=== PATIENT | male | born 1940 | race Caucasian/White ===

== ENCOUNTER 2022-08-17 22:09 | Inpatient (IN) | payer MEDICARE, SELFPAY ==
[2022-08-17] VITALS (9 sets, daily range): BP systolic 126–168; BP diastolic 79–98; PULSE 96–108; RESP 22; TEMP 35.8–36.1; O2SAT 92–99; BMI 238.0
--- NOTE | 2022-08-17 | IR_ITS ---
APPROVED REPORT Patient Location: Emergent Relief Manager: MURPHY Thomas RT (R) PROCEDURES Left heart catheterization Left ventriculogram Selective coronary angiogram Selective engage the left internal mammary artery Selective engagement saphenous vein graft to the left coronary artery Selective engagement of the saphenous vein graft to the right coronary artery INDICATION Acute anterior ST elevation myocardial infarction, Coronary artery disease SCAI INDICATION Clinical history: Gentleman with known ischemic cardiomyopathy and told he has a weak heart was at dinner and suddenly experienced sudden cardiac . Please officers and bystanders apparently provided immediate and effective CPR. Patient was quickly shocked at the scene with apparent voodoo of rhythm. Upon arrival to the emergency department emergency room physician reports patient was in torsades and underwent recurrent cardioversion with sinus activity. EKG demonstrated anterior ST elevation with reciprocal change therefore patient was heparinized and emergently transferred to our hospital for anticipated PCI Informed consent was obtained prior to the procedure. COMPLICATIONS None Estimated Blood Loss: Less than 10 ml TECHNIQUE One percent lidocaine used to anesthetize the right groin. The right femoral artery was accessed via the Seldinger technique and a 6 Belarusian sheath was placed in the right femoral artery. A 6 Belarusian JL 4 and JR4 catheter were used to perform left heart catheterization left ventriculogram selective coronary angiography as well as selective engagement of the left internal mammary artery and the 2 vein grafts. At the end of the procedure the apparatus was removed the groin is reprepped closure change sheath was removed and hemostasis was achieved using Perclose device patient was transferred to the postop holding area hemodynamically stable while on the ventilator. 1 cardioversion was required during the cardiac catheterization for ventricular flutter and 1 after the procedure for ventricular fibrillation. ANGIOGRAPHIC RESULTS The left main artery Normal The left anterior descending artery Gives rise to a very large high first diagonal artery which is widely patent The circumflex artery Is probably a dominant vessel and has proximal 10% stenosis. The second obtuse marginal artery is moderate to large and has proximal 40 to 50% stenosis while the second obtuse marginal artery has tandem 70 to 80% proximal stenoses in the mid vessel 40% stenosis The right coronary artery Probably nondominant but possibly codominant with proximal and mid vessel 20 to 30% stenoses. The posterior descending artery is proximally subtotally occluded with evidence of competitive flow from the vein graft The AKHTAR ventriculogram reveals Severe left ventricular dilatation with global hypokinesis estimate ejection fraction 15% The left ventricular end-diastolic pressure Severely elevated at 35 to 40 mmHg ROBBINS to LAD widely patent Saphenous vein graft to posterior descending artery patent Saphenous vein graft to circumflex artery ostially occluded IMPRESSION Sudden cardiac mimicking anterior ST elevation myocardial infarction with widely patent coronary arteries as described above Sudden cardiac almost certainly stemming from ischemic systolic congestive heart failure Severely reduced ejection fraction Severely elevated LVEDP PLAN 1. Amiodarone drip per protocol 2. Supportive care 3. Ventilator management 4. Lasix 40 mg IV x1 to help diurese 5. Monitor blood gases and make adjustments with ventilator as needed 6. Try to wean ventilator over the next couple of days and see if patient has b
[2022-08-17 22:38] LABS: CATHL Activated Clotting Time > 400 SEC (74-125)
[2022-08-17 22:50] LABS: ABG HCO3 19.7 mmhg (22.0-26.0); ABG Oxygen Saturation 94 % (90-100); ABG PCO2 49.2 mmhg (35.0-45.0); ABG PH 7.22 mmol/L (7.35-7.45); ABG PO2 84.1 mmhg (80-100); ABG TCO2 21.2 mmhg (23-27)
[2022-08-17 22:53] LABS: Allen's Test Non Applicable; Oxygen 100 %; PEEP 5; Source Right Radial; Tidal Volume 475; Vent Rate 22
--- NOTE | 2022-08-17 23:05 | EXP.HP ---
History of Present Illness *Admission Date: 08/18/22 *Reason for visit:: Sudden onset of Cardiac Arrest *History of present illness: Mr. Esposito is a transfer from [facility] due to acute onset of Cardiopulmonary Arrest that occurred while eating out today prior to his presentation to [facility]. Per Family at bedside the patient was out eating at a restaurant when he appeared to have a possible choking event and went down. He was unresponsive per family report and a bystander in the field performed CPR and 911 was called, there was also a fire prevention officer per family that assisted with CPR. He was intubated and defibrillated when EMS arrived. He was taken into the ER at [facility]. Records from the transferring facility were reviewed, while at the facility he was found in V-fibrillation and received epinephrine and Amiodarone and defibrillated with 200 Joules, he then went into Torsades and received magnesium. He was found to have an elevated Troponin at 65.8 and EKG showed Atrial Fibrillation with a rate of 71 with significant elevation in the lateral leads. He was sent to [facility] for Cardiology evaluation. At [facility] a STEMI alert was called, he underwent evaluation of coronary anatomy and no significant stenosis found. Due to a mixed Acidosis he received Sodium Bicarbonate in the receiver/laborer. He arrived to the intensive care intubated, Sedations orders were given. The family were present at bedside on transfer, the plan of care overnight was discussed by the Senior Marketing Specialist. The family verbalized understanding and agreement with the plan of care. [facility] Disclaimer: The information contained in this section may have been updated after the patient was seen, as this information can be updated by other users. Medical History (Updated 08/18/22 @ 00:59 by Scott Flynn DNP) Congestive heart failure Falls Hyperlipidemia Hypertension Surgical History (Updated 08/18/22 @ 00:25 by Scott Flynn DNP) History of penile implant History of percutaneous coronary intervention Hx of CABG Social History Smoking Status: Never smoker alcohol intake: never current occupational status: unemployed Travel in the last 8 weeks: None Review of Systems Review of Systems Review of systems:: unable to obtain Meds Home Medications and Allergies New Prescriptions to Start Prescriptions: Allergies Allergy/AdvReac Type Severity Reaction Status Date / Time No Known Allergies Allergy Verified 08/17/22 21:29 Exam Data for Last 24 hours Vital signs and Labs for Last 24 Hours: Laboratory Results - last 24 hr 08/17/22 22:42: Activated Clotting Time > 400 H* 08/17/22 22:46: Specimen Source Right radial, O2 % 100, ABG pH 7.22 L*, ABG pCO2 49.2 H, ABG pO2 84.1, ABG HCO3 19.7 L, ABG Total CO2 21.2 L, ABG O2 Saturation 94, ABG Base Excess -8.0 L, Tyron Test Non applicable, Vent Rate 22, Tidal Volume 475, PEEP 5 I & O for Last 24 hours: Intake & Output 08/14/22 08/15/22 08/16/22 08/17/22 23:59 23:59 23:59 23:59 Weight 120 kg Constitutional Constitutional: no acute distress *Routine HEENT Exam Head: Present normocephalic Eye: Present normal accommodation ENT: Present mucous membranes dry *Routine Neck Exam Neck: Present trachea midline *Routine Respiratory Exam Respiratory: Present patient mechanically ventilated and CTA bilaterally *Routine Cardiovascular Exam Cardiovascular: Present murmur and rubs *Routine Abdominal Exam Abdominal: Present soft and normoactive bowel sounds *Routine Rectal Exam Rectal:: deferred *Routine Genitalia Exam Genitalia:: deferred *Routine Skin Exam Skin: Present intact *Routine Neurological Exam Comments: Sedated on the ventilator Assessment and Plan *Assessment and plan (1) Cardiopulmonary arrest: Status: Acute Category: Medica
--- NOTE | 2022-08-17 23:45 | XR_ITS ---
PROCEDURE INFORMATION: Exam: XR Chest Exam date and time: 08/18/2022 12:09 AM Age: 81 years old Clinical indication: Device placement; Ett placement (vent status); Additional info: Ett and ng placement TECHNIQUE: Imaging protocol: Radiologic exam of the chest. Views: 1 view. COMPARISON: No relevant prior studies available. FINDINGS: Tubes, catheters and devices: Endotracheal tube appears to be in place with the tip approximally 2.5 cm above the mac. Esophagogastric tube appears to be in place with the tip in the stomach. Lungs: Lung volumes are low with bilateral lower lobe consolidative atelectasis. Upper lungs appear largely clear. Lung apices are partially obscured by the patient's head. Pleural spaces: Questionable pleural fluid or thickening in the right costophrenic angle. Heart/Mediastinum: Unremarkable. No cardiomegaly. Bones/joints: Unremarkable. IMPRESSION: Limited study due to low lung volumes. Bilateral lower lobe consolidative atelectasis and questionable right pleural fluid versus thickening noted. Tubular supportive devices as described, poorly visualized.
[2022-08-17 23:48] LABS: Basophils # 0.1 K/mm3 (0-0.2); Basophils % 0.4 % (0.1-2.0); Eosinophils # 0.1 K/mm3 (0.0-0.4); Eosinophils % 0.3 % (0.1-12.0); Hematocrit 44.9 % (42.0-52.0); Hemoglobin 14.5 g/dL (14.1-18.0); Lymphocytes # 2.1 K/mm3 (0.7-4.5); Lymphocytes % 9.9 % (10-50); Mean Corpuscular HGB Conc 32.3 g/dL (31.8-35.4); Mean Corpuscular Hemoglobin 31.1 pg (27.0-31.2); Mean Corpuscular Volume 96.6 fl (80-94); Mean Platelet Volume 8.9 fl (7.4-10.4); Monocytes % 4.8 % (1.7-9.3); Neutrophils # 17.9 K/mm3 (1.8-7.8); Neutrophils % 84.6 % (37.0-80.0); Platelet Count 266 K/mm3 (142-424); Red Blood Count 4.64 M/mm3 (4.60-6.20); Red Cell Distribution Width 13.9 % (11.5-17.5)
[2022-08-17 23:49] LABS: MANUAL DIFFERENTIAL MANUAL DIFFERENTIAL (MANUAL DIFF); White Blood Count 21.2 K/mm3 (4.8-10.8)
[2022-08-17 23:53] LABS: Alanine Aminotransferase 99 U/L (12-78); Albumin/Globulin Ratio 1.3 (1.1-1.8); Alkaline Phosphatase 150 U/L (38-126); Anion Gap 14.1 mEq/L (5-15); Aspartate Amino Transferase 283 U/L (17-59); Bilirubin,Total 1.5 mg/dl (0.2-1.3); Blood Urea Nitrogen 16 mg/dl (9-20); Calcium 7.3 mg/dl (8.4-10.2); Carbon Dioxide 18 mmol/L (22.0-30.0); Chloride 107 mmol/L (98-107); Creatinine Clearance Estimated -17 mL/min (50-200); Estimated Glomerular Filt Rate 53 ml/min (>60); GFR (African American) 64 ML/MIN (>60); Glucose 386 mg/dl (74-100); Magnesium 2.2 mg/dl (1.6-2.3); Phosphorous 4.1 mg/dl (2.5-4.5); Potassium 4.1 mmoL/L (3.5-5.1); Sodium 135 mmol/L (136-145)
[2022-08-18] VITALS (36 sets, daily range): BP systolic 71–142; BP diastolic 33–82; PULSE 78–100; RESP 16–27; TEMP 36.1–36.9; O2SAT 91–99; BMI 25.7
--- NOTE | 2022-08-18 00:06 | XR_ITS ---
PROCEDURE INFORMATION: Exam: XR Abdomen Exam date and time: 08/18/2022 12:20 AM Age: 81 years old Clinical indication: Device placement; Non-vascular device; Other: Ng; Additional info: Ng placement TECHNIQUE: Imaging protocol: Radiologic exam of the abdomen. Views: Frontal supine view of the abdomen. 1 View. COMPARISON: CR XR CHEST PORTABLE 08/18/2022 12:09 AM FINDINGS: Tubes, catheters and devices: Esophagogastric tube appears to be in good position with the tip and side port in the stomach. Endotracheal tube is in good position with the tip 4 cm above the mac. Lungs: There is persistent right lower lobe consolidative atelectasis. Lungs otherwise appear largely clear. Gastrointestinal tract: Normal. No bowel dilation. Bones/joints: Unremarkable. IMPRESSION: Apparent appropriate position of NG tube and endotracheal tube. Persistent right lower lobe consolidative atelectasis.
[2022-08-18 00:11] LABS: Lymphocytes % 6 % (10-50); Monocytes % 2 % (2-9); Neutrophils % 83 % (42-76); Platelet Estimate Normal; RBC Morphology Normal; Total Cells Counted 100
[2022-08-18 00:25] LABS: ABG Base Excess -13.5 mmol/L (-2.4-2.3); ABG HCO3 16.3 mmhg (22.0-26.0); ABG Oxygen Saturation 96 % (90-100); ABG PO2 109.2 mmhg (80-100); ABG TCO2 18.1 mmhg (23-27)
[2022-08-18 00:26] LABS: Allen's Test Non Applicable; Oxygen 100% %; PEEP 5; Source Right Femoral; Tidal Volume 475; Vent Rate 22
[2022-08-18 00:27] LABS: ABG PCO2 55.5 mmhg (35.0-45.0); ABG PH 7.09 mmol/L (7.35-7.45)
[2022-08-18 01:05] LABS: NT Pro Brain Natriuretic Pep. 1750 pg/mL (0-450)
--- NOTE | 2022-08-18 01:10 | PC.NURSE ---
Pt arrived to floor from labor contractor via [employer] @ 1811.
--- NOTE | 2022-08-18 03:30 | CT_ITS ---
PROCEDURE INFORMATION: Exam: CT Head Without Contrast Exam date and time: 08/18/2022 6:24 AM Age: 81 years old Clinical indication: Injury or trauma; Fall; Unconscious; Additional info: Fell, hit head, cardiac arrest TECHNIQUE: Imaging protocol: Computed tomography of the head without contrast. Radiation optimization: All CT scans at this facility use at least one of these dose optimization techniques: automated exposure control; mA and/or kV adjustment per patient size (includes targeted exams where dose is matched to clinical indication); or iterative reconstruction. COMPARISON: No relevant prior studies available. FINDINGS: Brain: Prominent sulci. Patchy hypodensity of the cerebral white matter which are nonspecific but likely secondary to microangiopathic changes. Cerebral ventricles: The ventricles are prominent secondary to diffuse volume loss/atrophy. Paranasal sinuses: Visualized sinuses are unremarkable. No fluid levels. Mastoid air cells: Visualized mastoid air cells are well aerated. Bones/joints: Unremarkable. No acute fracture. Soft tissues: Right frontal soft tissue swelling. IMPRESSION: Right frontal soft tissue swelling and age related changes but no evidence of acute intracranial pathology.
--- NOTE | 2022-08-18 03:32 | PC.NURSE ---
Pt was becoming agitated and fighting the vent. Propofol and versed started at 0245 @ 10 mcg/kg/min. Fentanyl started @ 10 mcg/hr. At 0315 BP hypotensive. Levophed started @ 10 mcg/min.
[2022-08-18 03:40] LABS: Coronavirus 19, PCR Not Detected (NotDetected); Influenza A, PCR Not Detected (NotDetected); Influenza B, PCR Not Detected (NotDetected)
--- NOTE | 2022-08-18 03:43 | XR_ITS ---
PROCEDURE INFORMATION: Exam: XR Chest Exam date and time: 08/18/2022 3:57 AM Age: 81 years old Clinical indication: Device placement; Ett placement (vent status) TECHNIQUE: Imaging protocol: Radiologic exam of the chest. Views: 1 view. COMPARISON: CR XR CHEST PORTABLE 08/18/2022 12:09 AM FINDINGS: Tubes, catheters and devices: What is believed to be endotracheal tube is in place with the tip poorly visualized, possibly approximally 2 cm above the mac. Esophagogastric tube appears to be in good position. Lungs: There is persistent bilateral lower lobe consolidative atelectasis, stable on the left and improved on the right. Pleural spaces: Unremarkable. No pleural effusion. No pneumothorax. Heart/Mediastinum: Unremarkable. No cardiomegaly. Bones/joints: Unremarkable. IMPRESSION: 1. Limited study due to poor visualization of tubular supportive devices. NG tube appears to be in good position. ET tube is poorly visualized at present, with tip questionably approximally 2 cm above the mac. 2. Persistent bilateral lower lobe consolidative atelectasis, slightly improved on the right.
--- NOTE | 2022-08-18 03:44 | PC.NURSE ---
ETT was moved from 25.5 cm to 23 cm
--- NOTE | 2022-08-18 03:59 | PC.NURSE ---
patient not stable enough to transport for ct scan at this time per nurse will f/u later in the AM to see if patient is stable enough for exam.
--- NOTE | 2022-08-18 03:59 | PC.NURSE ---
Larissa TURNER notified of pt triggering sepsis.
[2022-08-18 04:41] LABS: POC Glucose,Bedside 169 (70-110)
[2022-08-18 06:01] LABS: ABG Base Excess -9.4 mmol/L (-2.4-2.3); ABG Oxygen Saturation 100 % (90-100); ABG PCO2 35.2 mmhg (35.0-45.0); ABG PO2 316.1 mmhg (80-100); ABG TCO2 18.1 mmhg (23-27)
[2022-08-18 06:02] LABS: Allen's Test Patient Unable; Oxygen 100% %; PEEP 5; Source Right Radial; Tidal Volume 475; Vent Rate 24
--- NOTE | 2022-08-18 07:24 | PC.NURSE ---
Pt is following some commands this AM. Sedation changed from propofol to versed. Pt remains sinus with frequent PVCs. Amiodarone is currently infusing @ 16.7 ml/hr. Levophed is currently infusing @ 8 mcg/min. Fentanyl is @ 12.5 mcg/hr. Pt is currently tolerating vent at this time. Vent settings are as follows: ETT @ 23 cm @ lip. AC, FiO2 100%, TV 475, PEEP 5, R 24. Has had copious amounts of secretions. Blood tinged. F/C draining to bedside with clear, yellow urine. Pt has had one loose stool this shift. Output has been good. NG to (R) nare. Mittens on pt's hands for safety. Family at bedside.
--- NOTE | 2022-08-18 08:21 | PC.NURSE ---
Fi02 was decreased to 40% following am ABG results.
--- NOTE | 2022-08-18 08:49 | CT_ITS ---
PROCEDURE INFORMATION: Exam: CT Chest Without Contrast; Diagnostic Exam date and time: 08/18/2022 11:05 AM Age: 81 years old Clinical indication: Other: Food obstruction; Prior surgery TECHNIQUE: Imaging protocol: Diagnostic computed tomography of the chest without contrast. Radiation optimization: All CT scans at this facility use at least one of these dose optimization techniques: automated exposure control; mA and/or kV adjustment per patient size (includes targeted exams where dose is matched to clinical indication); or iterative reconstruction. COMPARISON: CR XR CHEST PORTABLE 08/18/2022 3:57 AM FINDINGS: Tubes, catheters and devices: Termination of feeding tube in the gastric body. Termination of endotracheal tube 4 cm above the mac. Thyroid: High attenuation 2.3 cm cyst in the left thyroid lobe with a peripheral punctate calcification. Lungs: Interstitial prominence, chronic granulomatous disease, and dependent bibasilar airspace disease. Pleural spaces: Trace right anterior pneumothorax with small dependent bilateral pleural effusions. Heart: Coronary artery calcification. 18 mm anterior pericardial effusion. Lymph nodes: Calcified and noncalcified lymph nodes, including a 1.8 by 1.4 by 1.1 cm calcified precarinal lymph node. Vasculature: Calcification and ectasia of the thoracic aorta Mediastinum: Dilated air and fluid-filled esophagus. Hiatal hernia. Upper abdomen: High attenuation bile in the gallbladder. Hepatic and splenic granulomata. Dilated air and fluid-filled stomach. Incompletely visualized 8 mm nodular hyperdensity in the left renal pelvis. Bones/joints: Bilateral rib fractures of varying age including an acute angulated fracture of the right 2nd anterior rib. Median sternotomy. Osteopenia, degenerative change, Schmorl's nodes, and vertebral endplate irregularity. Soft tissues: Unremarkable. IMPRESSION: 1. Trace right anterior pneumothorax with small dependent bilateral pleural effusions. 2. Interstitial prominence, chronic granulomatous disease, and dependent bibasilar airspace disease. . 3. Bilateral rib fractures of varying age including an acute angulated fracture of the right 2nd anterior rib. 4. Additional findings as described above. The aforementioned findings initiated a critical results communication pathway. An addendum will be issued at the time of clincian notification. COMMENTS: 1. Consistent with the [employer]'s Incidental Findings Committee white paper (J Am Jade Radiol 2018): Any incidental renal lesion less than 1 cm or classified as too small to characterize, or any incidental cystic renal lesion characterized as simple-appearing, is likely benign. No follow-up imaging is recommended for these lesions per consensus recommendations based on imaging criteria. 2. Consistent with the [employer]'s Incidental Findings Committee white paper (J Am Jade Radiol 2015): In patients aged 35 years and older with an incidental thyroid nodule equal to or greater than 1.[address], MRI or extrathyroidal US, further evaluation with dedicated thyroid US is recommended for patients with normal life expectancy and without comorbidities. For smaller nodules without suspicious features, no further evaluation or follow up is recommended.
--- NOTE | 2022-08-18 08:57 | HMH.ITSTN ---
we brought pt down previously for a CT head at 6am this morning. pt is intubated but not sedated and has to remain intubated. Unable to come at this time.. He just vomited and is not sedated and fighting tube, nurse will call when team is ready to bring down. He will have to come with respiratory and nursing staff
[2022-08-18 08:58] LABS: Basophils # 0.1 K/mm3 (0-0.2); Basophils % 0.3 % (0.1-2.0); Eosinophils # 0.1 K/mm3 (0.0-0.4); Eosinophils % 0.2 % (0.1-12.0); Hematocrit 46.8 % (42.0-52.0); Lymphocytes % 3.6 % (10-50); Mean Corpuscular HGB Conc 32.1 g/dL (31.8-35.4); Mean Corpuscular Hemoglobin 30.7 pg (27.0-31.2); Mean Corpuscular Volume 95.7 fl (80-94); Mean Platelet Volume 9.2 fl (7.4-10.4); Monocytes # 2.2 K/mm3 (0.1-1.0); Monocytes % 8.1 % (1.7-9.3); Neutrophils # 23.3 K/mm3 (1.8-7.8); Neutrophils % 87.8 % (37.0-80.0); Platelet Count 166 K/mm3 (142-424); Red Blood Count 4.89 M/mm3 (4.60-6.20); Red Cell Distribution Width 14.2 % (11.5-17.5); White Blood Count 26.5 K/mm3 (4.8-10.8)
[2022-08-18 09:01] LABS: MANUAL DIFFERENTIAL MANUAL DIFFERENTIAL (MANUAL DIFF)
--- NOTE | 2022-08-18 09:58 | PC.NURSE ---
Pt put on waitlist at
--- NOTE | 2022-08-18 09:58 | PC.NURSE ---
Pt put on waitlist at [facility].
--- NOTE | 2022-08-18 10:04 | PC.NURSE ---
Pt on waitlist at [facility].
--- NOTE | 2022-08-18 10:21 | PC.NURSE ---
Addendum entered by Yajaira Gray, ALFA 08/18/22 10:51: Dr. Barkley spoke with marketing compliance manager and pt is on waitlist. Original Note: DR. Barkley waiting automation application engineer back from marketing compliance manager at
--- NOTE | 2022-08-18 10:24 | PC.NURSE ---
Pt put on waitlist at [facility]
[2022-08-18 10:30] LABS: Chloride 108 mmol/L (98-107); Potassium 4.1 mmoL/L (3.5-5.1); Sodium 142 mmol/L (136-145)
[2022-08-18 10:32] LABS: Alanine Aminotransferase 106 U/L (12-78); Anion Gap 22.1 mEq/L (5-15); Aspartate Amino Transferase 202 U/L (17-59); Blood Urea Nitrogen 20 mg/dl (9-20); Carbon Dioxide 16 mmol/L (22.0-30.0); Creatinine Clearance Estimated 39 mL/min (50-200); Estimated Glomerular Filt Rate 37 ml/min (>60); GFR (African American) 44 ML/MIN (>60)
[2022-08-18 10:33] LABS: Albumin Level 3.8 g/dl (3.5-5.0); Albumin/Globulin Ratio 1.3 (1.1-1.8); Alkaline Phosphatase 127 U/L (38-126); Bilirubin,Total 0.8 mg/dl (0.2-1.3); Calcium 8.4 mg/dl (8.4-10.2); Globulin 2.9 g/dL (1.3-3.2); Glucose 141 mg/dl (74-100); Magnesium 1.8 mg/dl (1.6-2.3); Phosphorous 3.3 mg/dl (2.5-4.5); Total Protein,Serum 6.7 g/dl (6.3-8.2)
[2022-08-18 10:42] LABS: NT Pro Brain Natriuretic Pep. 6550 pg/mL (0-450)
--- NOTE | 2022-08-18 10:49 | PC.NURSE ---
Addendum entered by Yajaira Gray, SRNA 08/18/22 11:44: Contacted [facility], they are still waiting on a phone call from a Waste Recycler to transfer to Dr. Barkley. Original Note: Dr. Barkley waiting on phone call from clinician at [facility].
[2022-08-18 11:00] LABS: Lymphocytes % 9 % (10-50); Monocytes % 3 % (2-9); Neutrophils % 88 % (42-76); RBC Morphology Normal; Total Cells Counted 100
[2022-08-18 11:01] LABS: Platelet Estimate Normal
--- NOTE | 2022-08-18 11:01 | PC.NURSE ---
[facility] called Dr. Lindsey Carver has accepted the patient, but there is still no bed available. Face sheet faxed
[2022-08-18 11:08] LABS: POC Glucose,Bedside 134 (70-110)
--- NOTE | 2022-08-18 12:07 | PC.NURSE ---
called back to speak with Dr. Barkley.
--- NOTE | 2022-08-18 12:17 | PC.NURSE ---
Dr. Sandhu with accepted the patient. Still no beds available at this time.
--- NOTE | 2022-08-18 13:22 | PC.NURSE ---
Pt removed from all waiting lists for a bed per MD Webber
--- NOTE | 2022-08-18 15:47 | EXP.ACUTE.PN ---
Subjective *Date: 08/18/22 *Time: 15:47 Interval history: Remains intubated overnight. Following directions responsive. Extubated. Medical Exam Vital signs and Labs for Last 24 Hours: Vital Signs Temp Pulse Pulse Resp BP Pulse Ox FiO2 08/18/22 15:00 92 H 26 H 90/56 L 95 08/18/22 15:00 95 08/18/22 08:00 86 08/18/22 12:00 86 08/18/22 14:00 93 H 24 139/82 94 L 40 08/18/22 14:00 40 08/18/22 13:00 86 24 129/71 96 40 08/18/22 12:00 86 24 96/61 L 91 L 40 08/18/22 11:00 88 24 124/71 93 L 40 08/18/22 10:00 82 24 110/71 97 40 08/18/22 09:00 84 22 109/46 L 94 L 40 08/18/22 11:46 98.5 F 08/18/22 10:31 24 93 L 40 08/18/22 10:00 40 08/18/22 08:00 97.4 F L 08/18/22 08:00 95 40 08/18/22 08:00 97.4 F L 89 24 124/78 95 40 08/18/22 05:45 27 H 96 100 08/18/22 07:00 85 24 96/54 L 99 100 08/18/22 06:00 87 106/66 L 93 L 100 08/18/22 05:15 91 H 24 128/63 96 100 08/18/22 04:00 80 08/18/22 03:25 78 24 90/53 L 95 100 08/18/22 03:15 83 24 71/33 L 08/18/22 04:15 98.3 F 84 24 104/61 L 96 100 08/18/22 03:00 85 24 99/54 L 97 100 08/18/22 02:15 97.9 F 89 24 107/82 L 97 100 08/18/22 03:50 96 100 08/18/22 03:43 27 H 96 100 08/17/22 23:14 100 H 08/18/22 00:00 100 H 08/17/22 22:30 95 100 08/18/22 02:02 24 97 100 08/18/22 01:15 92 H 24 92/69 L 95 100 08/18/22 00:45 96.9 F L 92 H 22 142/65 H 94 L 100 08/18/22 00:15 92 H 22 132/79 94 L 100 08/17/22 23:45 96.9 F L 100 H 22 126/86 92 L 100 08/17/22 23:15 96 H 22 168/79 H 99 100 08/17/22 23:00 101 H 22 167/95 H 95 100 08/17/22 22:15 101 H 22 162/92 H 95 100 08/17/22 22:10 103 H 22 158/90 H 95 100 08/17/22 22:05 103 H 22 156/88 H 95 100 08/17/22 22:00 108 H 22 158/98 H 95 100 08/17/22 22:30 96.5 F L 108 H 22 158/88 H 95 100 08/17/22 23:45 22 95 100 08/17/22 22:10 96 100 08/17/22 22:10 22 96 100 Intake and Output 08/17/22 08/18/22 08/18/22 23:59 07:59 15:59 Intake Total 273 / 641 368 / 641 Output Total 2170 / 3035 865 / 3035 Balance -1897 / -2394 -497 / -2394 Intake: Intake, Total IV Amount 273 / 641 368 / 641 Amiodarone HCl 900 mg In 214 / 346 132 / 346 Dextrose 5 % in Water 500 ml @ 33.3 mls/hr IV .[id number] [facility] Rx# :[id number] Ampicillin Sodium/Sulbactam 3 100 / 100 gm In 0.9 % Sodium Chloride 100 ml @ 200 mls/hr IV Q6H [facility] Rx# :[id number] Fentanyl Citrate/Pf 1,000 mcg In 0.9 % Sodium Chloride 80 ml @ 10 MCG/HR 1 mls/hr IV .Q24H [facility] Rx#:[id number] Midazolam HCl/Pf 50 mg In 0.9 % 24 / 24 Sodium Chloride 40 ml @ 0.02 MG/KG/HR 1.676 mls/hr IV .Q25H [facility] Rx#:[id number] Norepinephrine Bitartrate 8 mg 46 / 149 103 / 149 In Dextrose 5 % in Water 250 ml @ 2 MCG/MIN 3.87 mls/hr IV . Q24H [facility] Rx#:[id number] propofoL 100 ml @ 5 MCG/KG/MIN 3.6 mls/hr IV .Q25H [facility] Rx#: [id number] Output: Output, Urine Amount (Catheter) 2170 / 3035 865 / 3035 Myers 2170 5 865 / 3035 Other: Number of Unmeasured Voids 0 0 Weight 120 kg 83.8 kg Patient Weight 08/18/22 23:59 Weight 83.8 kg Laboratory Results - last 24 hr 08/17/22 21:30: Specimen Source Right femoral, O2 % 100%, ABG pH 7.09 L*, ABG pCO2 55.5 H, ABG pO2 109.2 H, ABG HCO3 16.3 L, ABG Total CO2 18.1 L, ABG O2 Saturation 96, ABG Base Excess -13.5 L, Tyron Test Non applicable, Vent Rate 22, Tidal Volume 475, PEEP 5 08/17/22 22:42: Activated Clotting Time > 400 H* 08/17/22 22:46: Specimen Source Right radial, O2 % 100, ABG pH 7.22 L*, ABG pCO2 49.2 H, ABG pO2 84.1, ABG HCO3 19.7 L, ABG Total CO2 21.2 L, ABG O2
[2022-08-18 16:24] LABS: POC Glucose,Bedside 156 (70-110)
--- NOTE | 2022-08-18 18:05 | PC.NURSE ---
1330- Levophed titrated to 6mcg, BP 120/70, MAP 90 1345- Levophed titrated to 4mcg, BP 119/71, MAP 88 1400- Levophed titrated to 2mcg, BP 139/82 MAP 104 1415- Levophed titrated off, BP 113/80, MAP 95
--- NOTE | 2022-08-18 18:07 | PC.NURSE ---
Sedation stopped at 1245, Patient extubated at 1455 per RT, placed on 5LNC, patient tolerated well
--- NOTE | 2022-08-18 18:08 | PC.NURSE ---
Patient resting comfortably in bed with at bedside, extubated today to 5LNC and tolerating well, lung sounds diminished t/o, alert to person, perrla, will follow simple commands, voice is hoarse, HR reg, NSR per telemetry, amiodarone infusing per MD order, levophed titrated to off this shift, abd soft and nontender, NG tube remains in place clamped, FC patent and draining clear yellow urine at bedside, peripheral pulses 2+, denies any cp or soa, hematoma noted to forehead unchanged from this am, right femoral cath site cdi, no bleeding or hematoma noted, vss, bed in lowest position with call light in reach.
[2022-08-18 21:07] LABS: POC Glucose,Bedside 139 (70-110)
[2022-08-19] VITALS (19 sets, daily range): BP systolic 97–139; BP diastolic 51–76; PULSE 77–91; RESP 16–20; TEMP 36.3–36.9; O2SAT 93–97; BMI 24.8; BMI 25.0
--- NOTE | 2022-08-19 05:25 | PC.NURSE ---
Pt is alert to self. Knows the month, not the year. Understands he is in a hospital, but doesn't remember why. Communicates well with staff. Can express needs. Has had some difficulty with recalling conversations this shift. Pt has c/o generalized discomfort this shift. Medicated per oct. VS have remained stable. Pt remains on amiodarone gtt @ 16.7 ml/hr. O2 titrated from 5L to 3L O2 NC this shift. Pt is sinus with PVCs on telemetry. Pt was noted to be in trigeminy briefly but returned to sinus rhythm. NG to (R) nare in place. IO DC this Shift. F/C draining to bedside with clear, yellow urine. No BM this shift. Pt turned and oral care provided. Family at bedside.
[2022-08-19 06:22] LABS: POC Glucose,Bedside 113 (70-110)
--- NOTE | 2022-08-19 07:04 | XR_ITS ---
PROCEDURE INFORMATION: Exam: XR Chest Exam date and time: 08/19/2022 7:49 AM Age: 81 years old Clinical indication: Other: Aspiration; Additional info: Aspiration pna TECHNIQUE: Imaging protocol: Radiologic exam of the chest. Views: 1 view. COMPARISON: CT CHEST WO CON 08/18/2022 11:05 AM FINDINGS: The thorax is partially obscured by overlying EKG leads. Tubes, catheters and devices: Poor visualization of distal feeding tube. Lungs: Questionable left basilar airspace/pleural disease, which can be better assessed with AP and lateral chest radiographs, as clinically indicated. Pleural spaces: Blunting of the right costophrenic angle. Heart/Mediastinum: Borderline cardiomegaly. Bones/joints: Osteopenia, degenerative change, and old rib fractures. Median sternotomy. IMPRESSION: 1. Poor visualization of distal feeding tube. 2. Questionable left basilar airspace/pleural disease, which can be better assessed with AP and lateral chest radiographs, as clinically indicated.
--- NOTE | 2022-08-19 08:32 | EXP.ACUTE.PN ---
Subjective *Date: 08/19/22 *Time: 08:32 Interval history: No issues overnight. Discussed defibrillator, patient was hesitant about receiving and says he does not want. Breathing okay, no concerns or complaints Medical Exam Vital signs and Labs for Last 24 Hours: Vital Signs Temp Pulse Pulse Resp BP Pulse Ox FiO2 08/19/22 08:00 97.4 F L 08/19/22 08:00 97.4 F L 81 20 115/64 97 08/19/22 07:00 80 18 108/63 L 96 08/19/22 06:38 95 3 08/19/22 04:00 80 08/19/22 06:00 79 16 106/69 L 97 08/19/22 05:00 83 16 101/51 L 96 08/19/22 04:00 97.6 F 85 16 101/60 L 96 08/19/22 04:00 95 08/19/22 03:00 77 20 116/67 96 08/19/22 02:00 84 20 105/63 L 96 08/19/22 00:00 90 08/18/22 20:00 90 08/19/22 01:00 77 20 105/67 L 93 L 08/19/22 00:00 96 08/19/22 00:00 97.6 F 88 19 97/64 L 96 08/18/22 23:00 92 H 19 100/57 L 96 08/18/22 22:00 91 H 18 109/67 L 98 08/18/22 21:00 98 H 18 106/66 L 94 L 08/18/22 20:00 98.0 F 96 H 16 100/64 L 94 L 08/18/22 19:54 95 08/18/22 18:19 93 H 20 99/61 L 94 L 08/18/22 18:00 93 H 20 96/65 L 94 L 08/18/22 16:00 95 08/18/22 16:00 90 08/18/22 17:00 93 H 24 95/63 L 94 L 08/18/22 16:00 88 22 133/77 96 08/18/22 16:00 97.9 F 08/18/22 15:00 92 H 26 H 90/56 L 95 08/18/22 15:00 95 08/18/22 12:00 86 08/18/22 14:00 93 H 24 139/82 94 L 40 08/18/22 14:00 40 08/18/22 13:00 86 24 129/71 96 40 08/18/22 12:00 86 24 96/61 L 91 L 40 08/18/22 11:00 88 24 124/71 93 L 40 08/18/22 10:00 82 24 110/71 97 40 08/18/22 09:00 84 22 109/46 L 94 L 40 08/18/22 11:46 98.5 F 08/18/22 10:31 24 93 L 40 08/18/22 10:00 40 Intake and Output 08/18/22 08/19/22 08/19/22 23:59 07:59 15:59 Intake Total 325 / 983 233 / 233 Output Total 775 / 3810 300 / 300 Balance -450 / -2827 -67 / -67 Intake: Intake, Total IV Amount 325 / 983 233 / 233 Amiodarone HCl 900 mg In 125 / 488 133 / 133 Dextrose 5 % in Water 500 ml @ 33.3 mls/hr IV .[id number] [facility] Rx# :[id number] Ampicillin Sodium/Sulbactam 3 200 / 300 100 / 100 gm In 0.9 % Sodium Chloride 100 ml @ 200 mls/hr IV Q6H [facility] Rx# :[id number] Output: Output, Urine Amount (Catheter) 775 / 3810 300 / 300 Myers 775 / 3810 300 / 300 Other: Number of Unmeasured Voids 0 0 Weight 80.91 kg Patient Weight 08/19/22 23:59 Weight 80.91 kg Laboratory Results - last 24 hr 08/18/22 08:50: WBC 26.5 H*, RBC 4.89, Hgb 15.0, Hct 46.8, MCV 95.7 H, MCH 30.7, MCHC 32.1, RDW 14.2, Plt Count 166 D, MPV 9.2, Neut % (Auto) 87.8 H, Lymph % (Auto) 3.6 L, Karnes % (Auto) 8.1, Eos % (Auto) 0.2, Baso % (Auto) 0.3, Neut # (Auto) 23.3 H, Lymph # (Auto) 1.0, [place] # (Auto) 2.2 H, Eos # (Auto) 0.1, Baso # (Auto) 0.1, Total Counted 100, Neutrophils % (Manual) 88 H, Lymphocytes % (Manual) 9 L, Monocytes % (Manual) 3, Platelet Estimate Normal, RBC Morphology Normal 08/18/22 08:50: Sodium 142, Potassium 4.1, Chloride 108 H, Carbon Dioxide 16 L, Anion Gap 22.1 H, BUN 20, Creatinine 1.80 H D, Estimated Creat Clear 39, Estimated GFR 37 L, Est GFR ( Amer) 44 L D, Glucose 141 H D, Calcium 8.4, Phosphorus 3.3, Magnesium 1.8 D, Total Bilirubin 0.8, AST 202 H D, ALT 106 H, Alkaline Phosphatase 127 H, NT-Pro-B Natriuret Pep 6550 H, Total Protein 6.7, Albumin 3.8, Globulin 2.9, Albumin/Globulin Ratio 1.3 08/18/22 11:01: POC Glucose 134 H 08/18/22 16:10: POC Glucose 156 H 08/18/22 20:52: POC Glucose 139 H 08/19/22 06:10: POC Glucose 113 H I & O for Labs for Last 24 Hours: Intake & Output 08/16/22 08/17/22 08/18/22 08/19/22 23:59 23:59 23:59 23:59 Intake Total 966 / 983 233 / 233 Output Total 3810 / 3810 300 / 300 Balance -2844 / -2827 -67 / -67 Weight
[2022-08-19 08:55] LABS: Basophils % 0.2 % (0.1-2.0); Eosinophils # 0.1 K/mm3 (0.0-0.4); Eosinophils % 0.7 % (0.1-12.0); Hematocrit 34.5 % (42.0-52.0); Lymphocytes # 1.5 K/mm3 (0.7-4.5); Lymphocytes % 9.3 % (10-50); Mean Corpuscular HGB Conc 33.5 g/dL (31.8-35.4); Mean Corpuscular Volume 92.5 fl (80-94); Mean Platelet Volume 8.6 fl (7.4-10.4); Monocytes # 1.1 K/mm3 (0.1-1.0); Monocytes % 6.9 % (1.7-9.3); Neutrophils # 13.1 K/mm3 (1.8-7.8); Neutrophils % 82.9 % (37.0-80.0); Platelet Count 192 K/mm3 (142-424); Red Blood Count 3.73 M/mm3 (4.60-6.20); Red Cell Distribution Width 14.4 % (11.5-17.5); White Blood Count 15.9 K/mm3 (4.8-10.8)
[2022-08-19 08:59] LABS: MANUAL DIFFERENTIAL MANUAL DIFFERENTIAL (MANUAL DIFF)
[2022-08-19 09:01] LABS: Hemoglobin 11.4 g/dL (14.1-18.0)
[2022-08-19 09:06] LABS: Chloride 105 mmol/L (98-107)
[2022-08-19 09:07] LABS: Potassium 3.8 mmoL/L (3.5-5.1); Sodium 137 mmol/L (136-145)
[2022-08-19 09:09] LABS: Alanine Aminotransferase 71 U/L (12-78); Aspartate Amino Transferase 115 U/L (17-59); Blood Urea Nitrogen 37 mg/dl (9-20); Creatinine Clearance Estimated 31 mL/min (50-200); Estimated Glomerular Filt Rate 29 ml/min (>60); GFR (African American) 35 ML/MIN (>60)
[2022-08-19 09:10] LABS: Albumin Level 3.2 g/dl (3.5-5.0); Albumin/Globulin Ratio 1.1 (1.1-1.8); Alkaline Phosphatase 98 U/L (38-126); Anion Gap 10.8 mEq/L (5-15); Bilirubin,Total 0.9 mg/dl (0.2-1.3); Calcium 8.3 mg/dl (8.4-10.2); Carbon Dioxide 25 mmol/L (22.0-30.0); Globulin 2.9 g/dL (1.3-3.2); Glucose 120 mg/dl (74-100); Total Protein,Serum 6.1 g/dl (6.3-8.2)
--- NOTE | 2022-08-19 09:15 | PC.NURSE ---
Addendum entered by Ruma Reveles 08/19/22 09:21: pat returned the call and said someone will be here today Original Note: called Pat (speech therapy) left a message of consult
--- NOTE | 2022-08-19 09:38 | HMH.PHAINT1 ---
Pharmacy Intervention Comments: MEDICATION RECONCILIATION COMPLETED ON [facility] VIA INFORMATION RECEIVED FROM [facility]. -ABDELRAHMAN HUYNH, KAREND
[2022-08-19 10:25] LABS: Microscopic, Urine URINE MICROSCOPIC (MICROSCOPIC)
[2022-08-19 11:26] LABS: POC Glucose,Bedside 115 (70-110)
[2022-08-19 11:27] LABS: Appearance,Urine CLEAR (Clear); Bilirubin,Urine Negative (Negative); Blood, Urine 2+ (Negative); Color,Urine YELLOW (Yellow); Glucose,Urine (UA) Negative (Negative); Ketones,Urine Negative (Negative); Leukocyte Esterase,Urine Negative (Negative); Nitrate,Urine Negative (Negative); PH,Urine 6.5 (5.0-8.5); Protein,Urine Negative (Negative); Urobilinogen,Urine 0.2 EU/dl (0.2)
[2022-08-19 11:37] LABS: Lymphocytes % 16 % (10-50); Monocytes % 1 % (2-9); Neutrophils % 83 % (42-76); Platelet Estimate Normal; Total Cells Counted 100
[2022-08-19 11:38] LABS: RBC Morphology Normal
[2022-08-19 11:47] LABS: RBC,Urine Occasional #/hpf (0-3); Squamous Epithelial Cell,Urine Occasional #/hpf (0-5); WBC,Urine Occasional #/hpf (0-3)
--- NOTE | 2022-08-19 17:00 | PC.NURSE ---
called back and at 4:00 spoke with Rolanda reid said she would call Rissa but have not heard back
--- NOTE | 2022-08-19 17:20 | PC.NURSE ---
Albin is aware of speech consult he spoke with Rissa said she would try to make it in.
[2022-08-19 22:03] LABS: POC Glucose,Bedside 107 (70-110)
[2022-08-20] VITALS (15 sets, daily range): BP systolic 93–123; BP diastolic 51–71; PULSE 70–90; RESP 16–22; TEMP 36.6–37.2; O2SAT 90–100; BMI 23.9
[2022-08-20 05:16] LABS: POC Glucose,Bedside 112 (70-110)
--- NOTE | 2022-08-20 07:36 | HMH.SLDYSPHA ---
Speech & Language Evaluation Speech/Language Dysphagia Evaluation Start: 08/20/22 06:57 Freq: ONCE Status: Active Protocol: Document 08/20/22 06:58 KEMI (Rec: 08/20/22 07:36 [email or web address] [id number]) Dysphagia Assess/Goals/Plan Assessment Date of Evaluation: 08/20/22 Evaluation Type Initial Certification Assessment/Problems Pt assessed via clinical bedside swallow evaluation post extubation per MD order. Does Patient Qualify for Service No Qualify/Failure Comment Based on assessment results, pt mastication & swallow are within WFL. No skilled speech therapy services are warranted at this time. Recommendations PHYSICIAN CERTIFICATION: The specified therapy services are required, authorized, and reviewed every 30 days. Diet Recommendations Normal Liquid Type Recommendations Normal/Thin SL Swallow Guidelines Eat at slow rate Dysphagia Swallow Precautions/Strategies Sitting Upright (90 deg),Small Bites and Sips,Alternate Liquids/Solids Plan Pt/Guardian verbally ack understanding Yes of dx/prognosis/goals G -code Required No Education Instructions provided Discussed assessment results, precautions, and diet recommendations with pt, family, nursing, and care management all of which expressed understanding. Pt/Caregiver able to recall information Able to recall/restate Reinforcement needed No Speech & Language HPI History Present Illness Description of Patient Problem OFFICE SUPPORT SPECIALIST pulled the following from ER report, Mr. Esposito is a transfer from [facility] due to acute onset of Cardiopulmonary Arrest that occurred while eating out today prior to his presentation to [facility]. Per Family at bedside the patient was out eating at a restaurant when he appeared to have a possible choking event and went down. He was unresponsive per family report and a bystander in the field performed CPR and 911 was called, there was also a
--- NOTE | 2022-08-20 08:00 | CA_ITS ---
APPROVED REPORT EXAM: Comprehensive 2D, Doppler, and color-flow Echocardiogram Acidity Tester: Carine Moyer RVT Ht: 5 ft 11 in Wt: 184lbs BSA: 2.04 BP: 109/46 mmHg Indications: STEMI,S/P CARDIAC ARREST,CARDIOMEGALY,RIB FX 2D Dimensions LVOT 2.14 cm (M/F) 1.5-2.5 LA Volume 72.30 mL LA Volume Index 35.44 mL/m2 (M/F) 16-34 M-Mode Dimensions RVDd 2.92 cm (0.9-2.6) LA Diam 4.57 cm (1.9-4.0) LVDd 7.83 cm (3.5-5.7) Ao Diam 3.74 cm (2.0-3.7) LVDs 6.78 cm (3.5-5.7) IVSd 0.51 cm (0.6-1.1) PWd 0.72 cm (0.6-1.1) EF (Teich) 35.10% FS 17.50% EDV (Teich) 366.10 mL TAPSE 1.60 (<1.7) ESV (Teich) 237.70 mL LV Diastology E Decel Time 150.00 (160-240 msec) E/A Ratio 0.5 MED E' 4.50 (< 7 cm/sec) E'/MED E' Ratio 9.11 (>14) LAT E' 4.20 (<10 cm/sec) E/LAT E' Ratio 9.76 (>14) Aortic Valve AI PHT 828.00 ms AO Peak GR. 4.10 mmHg Mitral Valve MV E Max Ran. 41.00 (40-130 cm/s) MV A Velocity 77.00 (40-130 cm/s) E/A Ratio 0.53 MV Decel. Time 150.00 (160-240 ms) MV PHT 44.00 ms Pulmonary Valve PV Peak Velocity 70.00 (50-150 cm/s) Tricuspid Valve TR P. Velocity 276.00 cm/s RAP Estimate 10.00 mmHg RVSP 40.50 mmHg Left Ventricle Left atrium is moderately enlarged, left ventricle is moderately dilated, there is severe reduced left ventricular systolic function, estimated ejection fraction 25%, there is marked hypokinesis involving mid to distal septum, anterior, anterior apical and apical wall. Diastolic parameters are inconclusive. Right Ventricle Right atrium and right ventricle are mildly enlarged with normal contractility. Aortic Valve Aortic valve is thickened and calcified without aortic stenosis, there is trace aortic insufficiency. Mitral Valve Mitral valve is minimally thickened, there is moderate mitral regurgitation. Tricuspid Valve Tricuspid valve is grossly normal, there is mild tricuspid regurgitation, calculated right ventricular systolic pressure is 40 mmHg. Pulmonic Valve Pulmonic valve is poorly visualized. Great Vessels Aortic root is normal size. Inferior vena cava is normal size with normal inspiratory collapse. Pericardium No significant pericardial effusion noted. Conclusion 1. Biatrial enlargement, dilated left ventricle, severe reduced left ventricular systolic function, estimated ejection fraction 25% with multiple segmental wall motion abnormality described above, diastolic parameters are inconclusive. 2. Mildly enlarged right ventricle with normal contractility. 3. Moderate mitral and mild tricuspid regurgitation, calculated right ventricular systolic pressure is 40 mmHg. 4. No significant pericardial effusion noted. 5. Inferior vena cava is normal size with normal inspiratory collapse. Electronically signed by : Leroy Ceron MD 08/20/2022 09:53:54
--- NOTE | 2022-08-20 10:04 | EXP.CARD.CON ---
History of Present Illness History of Present Illness Consult date: 08/20/22 Requesting physician: Zahraa Barkley Consult reason: chest pain Chief complaint: Sudden cardiac Additional Medical History:: 1. CAD with prior NE and stenting prior to CABG A. Three-vessel CABG, 2013 with ROBBINS to LAD, SVG to PDA, SVG to circumflex B. Sudden cardiac mimicking anterior STEMI, 08/17/2022 requiring intubation and mechanical ventilation C. Left heart catheterization 08/17/2022 ANGIOGRAPHIC RESULTS The left main artery Normal The left anterior descending artery Gives rise to a very large high first diagonal artery which is widely patent The circumflex artery Is probably a dominant vessel and has proximal 10% stenosis.? The second obtuse marginal artery is moderate to large and has proximal 40 to 50% stenosis while the second obtuse marginal artery has tandem 70 to 80% proximal stenoses in the mid vessel 40% stenosis The right coronary artery Probably nondominant but possibly codominant with proximal and mid vessel 20 to 30% stenoses.? The posterior descending artery is proximally subtotally occluded with evidence of competitive flow from the vein graft The AKHTAR ventriculogram reveals Severe left ventricular dilatation with global hypokinesis estimate ejection fraction 15% The left ventricular end-diastolic pressure Severely elevated at 35 to 40 mmHg ROBBINS to LAD widely patent Saphenous vein graft to posterior descending artery patent Saphenous vein graft to circumflex artery ostially occluded IMPRESSION Sudden cardiac mimicking anterior ST elevation myocardial infarction with widely patent coronary arteries as described above Sudden cardiac almost certainly stemming from ischemic systolic congestive heart failure Severely reduced ejection fraction Severely elevated LVEDP PLAN 1. Amiodarone drip per protocol 2. Supportive care 3. Ventilator management 4. Lasix 40 mg IV x1 to help diurese 5. Monitor blood gases and make adjustments with ventilator as needed 6. Try to wean ventilator over the next couple of days and see if patient has brain activity and awakens from this event 7. If patient has a cerebral recovery prior to discharge he would be a candidate for AICD placement Electronically signed by : Bradly Barkley MD? 08/17/2022 22:56:11 2. History of systolic congestive heart failure with patient stating previous EF known to be 30% 3. History of esophageal dilatation 4. Hypertension 5. Hyperlipidemia History of present illness: Mr. Esposito is a transfer from [facility] due to acute onset of Cardiopulmonary Arrest that occurred while eating out today prior to his presentation to [facility].? Per Family at bedside the patient was out eating at a restaurant when he appeared to have a possible choking event and went down.? He was unresponsive per family report and? a bystander in the field performed CPR and 911 was called, there was also a anti air warfare operations officer per family that assisted with CPR.? He was intubated and defibrillated when EMS arrived.? He was taken into the ER at [facility]. ? Records from the transferring facility were reviewed, while at the facility he was found in V-fibrillation and received epinephrine and Amiodarone and defibrillated with 200 Joules, he then went into Torsades and received magnesium.? He was found to have an elevated Troponin at 65.8 and EKG showed Atrial Fibrillation with a rate of 71 with significant elevation in the lateral leads.? He was sent to [facility] for [facility]iology evaluation.? At [facility] a STEMI alert was called, he underwent evaluation of coronary anatomy and no significant stenosis found.? Due to a mixed Acidosis he received Sodium Bicarbonate in the [employer].? He arrived to the intensive care intubated, Sedations orders were given.? The family were present at bedside on transfer, t
--- NOTE | 2022-08-20 11:30 | HMH.PTEV ---
Physical Therapy Evaluation Rehab PT IP Evaluation Start: 08/20/22 11:26 Freq: .once Status: Active Protocol: Document 08/20/22 11:27 FANNY (Rec: 08/20/22 11:30 [email or web address] [id number]) Subjective/History History History 81 yowm adm to [facility] S/P STEMI with general weakness. He reports he lives alone, but has assist available, 2-3 steps to enter the home, and he is generally independent with all mobility without AD. Subjective Subjective Currently no c/o this am. Rehab PT IP Eval Objective Appearance Patient Behavior Appropriate Patient Orientation Person,Place,Time Difficulty following instructions none Speech Pattern Clear Ambulation Patient Able to Ambulate Yes Ambulation Observation IP General Gait Pattern Observation No Deviations/Normal Ambulation Distance (feet) 300 Ambulation Assistive Device None Ambulation Ability Supervision/Stand by Balance Ability to Arise Able, uses arms to help Sitting Balance Steady, safe Standing Balance Steady, wide stance Dynamic Sitting Balance Ability Good Dynamic Standing Balance Ability Good Transfers Bed Transfer Ability Independent Chair Transfer Ability Supervision/Stand by Sit to Stand Bed Transfer Ability Supervision/Stand by Sit to Stand Chair Transfer Ability Supervision/Stand by ROM All Extremities PT ROM Status WFL MMT All Extremities PT MMT WFL Rehab PT IP prob,goals,plan Problems Date of Evaluation: 08/20/22 Discharge Plan PT Discharge Plan Pt is currently independent with all mobility and appropriate to return home once medically stable for d/c. Recommend outpatient Cardiac Rehab once appropriate. G -code Required No Eval Complexity Eval Charge Codes 59316 - Moderate Complexity PHYSICIAN CERTIFICATION: I certify the specified therapy services for Jody Esposito are required, authorized, and reviewed every 30 days.
[2022-08-20 11:32] LABS: POC Glucose,Bedside 73 (70-110)
[2022-08-20 11:32] LABS: POC Glucose,Bedside 122 (70-110)
[2022-08-20 12:42] LABS: Chloride 102 mmol/L (98-107)
[2022-08-20 12:43] LABS: Potassium 3.4 mmoL/L (3.5-5.1); Sodium 140 mmol/L (136-145)
[2022-08-20 12:46] LABS: Anion Gap 12.4 mEq/L (5-15); Blood Urea Nitrogen 38 mg/dl (9-20); Carbon Dioxide 29 mmol/L (22.0-30.0); Creatinine Clearance Estimated 35 mL/min (50-200); Estimated Glomerular Filt Rate 34 ml/min (>60); GFR (African American) 42 ML/MIN (>60); Glucose 131 mg/dl (74-100)
--- NOTE | 2022-08-20 14:29 | DIET.NUTRFU ---
Patient was started on cardiac diet today, passed speech study with no issues post extubation. Saw patient at lunch, had not eaten anything. Family present and he reported poor intake at home, may eat 1 small meal/day otherwise is candy most of the day. helps with meal prep and they limit their salt. He loves sugar and agree to consume chocolate pudding and ice cream for lunch. Will include on dinner tray also.
[2022-08-20 16:32] LABS: POC Glucose,Bedside 136 (70-110)
--- NOTE | 2022-08-20 17:00 | PC.NURSE ---
ASSESSMENT DONE AT THIS TIME. LUNGS- CRACKLES/WHEEZING NOTED THROUGHOUT LUNG PIMENTEL. BOWELS HYPOACTIVE AT THIS TIME. A/O X4. TWO IV IN PLACE AT THIS TIME. BRUISING NOTED THROUGHOUT ARMS. RIGHT GROIN SITE NOTED- C/D/I. NO ASSISTANCE NEEDED TO RESTROOM. THIS AFTERNOON- REPORTS FATIGUE. PTS HAS HAD POOR APPETITE TODAY. HAS BEEN AT BEDSIDE TODAY. VITALS WITHIN NORMAL RESULTS. CALL LIGHT WITHIN REACH.
--- NOTE | 2022-08-20 17:14 | PC.NURSE ---
DR JOSÉ ANTONIO JOSEPH AT BEDSIDE
--- NOTE | 2022-08-20 18:19 | EXP.ACUTE.PN ---
Subjective *Date: 08/20/22 *Time: 18:19 Interval history: Increased fatigue today. No chest pain. No shortness of breath. Pain at rib site from fractures. Willing to get AICD Medical Exam Vital signs and Labs for Last 24 Hours: Vital Signs Temp Pulse Pulse Resp BP Pulse Ox FiO2 08/20/22 16:00 85 08/20/22 12:00 80 08/20/22 08:00 80 08/20/22 17:11 83 22 122/63 95 08/20/22 15:27 98.5 F 89 16 93/51 L 96 08/20/22 08:00 76 97 08/20/22 11:20 97.8 F 88 16 107/52 L 98 08/20/22 08:00 76 20 120/66 97 08/19/22 20:00 90 08/20/22 04:00 80 08/20/22 08:00 98.1 F 08/20/22 06:00 75 20 123/65 97 08/20/22 02:00 84 19 111/69 93 L 08/20/22 00:00 85 20 116/63 90 L 08/19/22 22:00 90 20 122/72 93 L 08/20/22 04:00 79 19 111/69 96 08/20/22 04:05 98.1 F 08/19/22 20:00 91 H 20 121/76 93 L 08/20/22 00:00 90 08/19/22 20:05 98.5 F 08/20/22 00:05 98.0 F 08/19/22 21:19 28 Intake and Output 08/20/22 08/20/22 08/20/22 07:59 15:59 23:59 Intake Total 60 / 180 120 / 180 Output Total 250 / 250 0 / 250 Balance -250 / -70 60 / -70 120 / -70 Intake: Intake, Oral Amount 60 / 180 120 / 180 Output: Output, Urine Amount 250 / 250 0 / 250 Other: Number of Voids 1 Number of Unmeasured Voids 1 Weight 77.474 kg Patient Weight 08/20/22 23:59 Weight 77.474 kg Laboratory Results - last 24 hr 08/19/22 16:54: POC Glucose 122 H 08/19/22 20:32: POC Glucose 107 08/20/22 05:08: POC Glucose 112 H 08/20/22 11:25: POC Glucose 73 08/20/22 12:14: Sodium 140, Potassium 3.4 L, Chloride 102, Carbon Dioxide 29, Anion Gap 12.4, BUN 38 H, Creatinine 1.90 H, Estimated Creat Clear 35, Estimated GFR 34 L, Est GFR ( Amer) 42 L, Glucose 131 H, Calcium 9.0 08/20/22 16:16: POC Glucose 136 H I & O for Labs for Last 24 Hours: Intake & Output 08/17/22 08/18/22 08/19/22 08/20/22 23:59 23:59 23:59 23:59 Intake Total 966 / 983 433 / 433 180 / 180 Output Total 3810 / 3810 1925 / 1925 250 / 250 Balance -2844 / -2827 -1492 / -1492 -70 / -70 Weight 120 kg 83.8 kg 80.91 kg 77.474 kg Microbiology Reports for the Last 24 Hours: Microbiology 08/18/22 02:00 Sputum - Endotracheal Tube Aspirate Gram Stain - Final 08/18/22 02:00 Sputum - Endotracheal Tube Aspirate Sputum Culture - Preliminary Head: Present atraumatic and normocephalic ENT: Present normal exam Neck: Present normal inspection and full ROM Respiratory: Present CTA bilaterally; Absent accessory muscle use Cardiac: Present Reg Rate and Rhythm, Regular Rate and S1/S2 GI: Present soft; Absent tenderness Rectal (male): Present deferred (male): Present deferred Extremities: Present normal inspection; Absent tenderness Skin: Present intact; Absent erythema Assessment and Plan *Assessment and plan (1) Sudden cardiac : Status: Acute Category: Medical Code(s): I46.9 - Cardiac arrest, cause unspecified (2) Cardiopulmonary arrest: Status: Acute Category: Medical Code(s): I46.9 - Cardiac arrest, cause unspecified (3) CAD (coronary artery disease): Status: Acute Category: Medical Code(s): I25.10 - Atherosclerotic heart disease of [place] coronary artery without angina pectoris (4) Ischemic dilated cardiomyopathy: Status: Acute Category: Medical Code(s): I25.5 - Ischemic cardiomyopathy; I42.0 - Dilated cardiomyopathy (5) Aspiration into airway: Status: Acute Category: Medical Code(s): T17.908A - Unspecified foreign body in respiratory tract, part unspecified causing other injury, initial encounter (6) Pulmonary edema: Status: Acute Category: Medical Code(s): J81.1 - Chronic pulmonary edema (7) Transaminitis: Status: Acute Category: Medical Code(s): R74.0
[2022-08-20 21:22] LABS: POC Glucose,Bedside 129 (70-110)
[2022-08-21] VITALS (21 sets, daily range): BP systolic 102–143; BP diastolic 57–76; PULSE 68–85; RESP 16–18; TEMP 36.7–37.1; O2SAT 93–98; BMI 24.3
--- NOTE | 2022-08-21 05:10 | PC.NURSE ---
NO ACUTE CHANGES SINCE PREVIOUS ASSESSMENT. PT HAS SLEPT WELL THIS SHIFT. REMAINS ON ROOM AIR. PT HAS STATED THAT HIS CHEST IS STILL SORE WHERE HE RECEIVED CPR AND HAD BROKEN RIBS PRIOR TO CPR. NO C/O SOB OR CHEST PAIN THIS SHIFT. VSS.
[2022-08-21 06:34] LABS: POC Glucose,Bedside 115 (70-110)
[2022-08-21 06:51] LABS: Basophils % 0.2 % (0.1-2.0); Eosinophils # 0.1 K/mm3 (0.0-0.4); Eosinophils % 1.4 % (0.1-12.0); Hematocrit 30.8 % (42.0-52.0); Hemoglobin 10.2 g/dL (14.1-18.0); Lymphocytes # 1.2 K/mm3 (0.7-4.5); Lymphocytes % 14.8 % (10-50); Mean Corpuscular HGB Conc 33.2 g/dL (31.8-35.4); Mean Corpuscular Hemoglobin 31.7 pg (27.0-31.2); Mean Corpuscular Volume 95.5 fl (80-94); Mean Platelet Volume 8.2 fl (7.4-10.4); Monocytes # 0.6 K/mm3 (0.1-1.0); Monocytes % 7.3 % (1.7-9.3); Neutrophils % 76.3 % (37.0-80.0); Platelet Count 204 K/mm3 (142-424); Red Blood Count 3.23 M/mm3 (4.60-6.20); Red Cell Distribution Width 14.3 % (11.5-17.5); White Blood Count 7.8 K/mm3 (4.8-10.8)
--- NOTE | 2022-08-21 07:00 | IR_ITS ---
APPROVED REPORT Patient Location: Inpatient Room Worker: MURPHY Kong RT (R) PROCEDURES 1. Pocket formation for AICD. 2. Placement of atrial sensing and pacing coil into the right atrial appendage. 3. Placement of a ventricular sensing, pacing and shocking coil in the right ventricular apex. 4. Permanent AICD placement. INDICATION Systolic Congestive Heart Failure, ejection < 35%, [place] Heart Assoication Class 3 Congestive Heart Failure Informed consent was obtained prior to the procedure. COMPLICATIONS None Estimated Blood Loss: Less than 10 ML TECHNIQUE 1% Lidocaine with epinephrine used to anesthetized the left anterior aspect of the chest. Scalpel was used to make the initial cutaneous incision while electrocautery was used to dissect down tinto the fascia. The fascia was lifted off the pectoralis muscle and digitally manipulated creating a pocket for the defibrillator. The patient was then placed in Trendelenburg position and the subclavian vein was accessed 2 times via the Selinger technique. A 8 Swiss sheath was placed under fluoroscopic guidance into the subclavian vein. The dilator was removed from the sheath. Using fluoroscopic guidance, the ventricular lead was placed into the right ventricular apex, screwed and secured into place. Electronic interrogation proved acceptable thresholds and voltage within the lead. Using 3-0 silk, the ventricular lead was then secured into place and sheath peeled away. A 6 Swiss fresh sheath and dilator was placed over the existing wire. Using fluoroscopic guidance, the atrial lead was then placed into the right atrial appendage and screwed and secured in place. Electrical interrogation demonstrated acceptable thresholds and voltage number. The atrial lead was then secured into place using 3-0 silk and sheath peeled away. 1 gram of Ancef was used to flush the pocket. All 3 leads were connected to generator and tested via computer. The defibrillator then secured to the fascia. Monocryl was used to close the subcutaneous layers while shannon were used to close the cutaneous layer. A pressure dressing was placed and the patient was transferred to the postop holding area in stable condition for postoperative care. INTERROGATION Generator Model number: Andreant ICD DF4-DR D233 Generator Serial number: [id number] Atrial lead model number: Ingevity + IS-1 Bi Positive Fix RA/RV 52cm 7841 Atrial lead serial number: [id number] P-wave: 1.2 mV Impedence: 542 Ohms Threshold: 2.0V @ 0.4ms Current: 3.7 mA Right Ventricular lead model number: [place] 4-Front Active Fix Dual Coil 59 cm 0675 Right Ventricular lead serial number: [id number] R-wave: 12.0 mV Impedence: 450 Ohms Threshold: 0.3V @ 0.4ms Current: 0.7 mA Pacing Parameters: Mode: DDD Base/Max Track:60 ppm / 130 ppm Quick Convert, 41Jx1, 41Jx1, 41Jx6 ATP 41Jx1, 41Jx1, 41Jx4 VF 200bpm 2.5 sec VT 170 170 bpm 5 sec No diaphragmatic stimulation at 10 volts. IMPRESSION 1. Successful Pocket formation for AICD. 2. Successful Placement of atrial sensing and pacing coil into the right atrial appendage. 3. Successful Placement of a ventricular sensing, pacing and shocking coil in the right ventricular apex. 4. Successful Permanent AICD placement. PLAN 1. Post Op Wound Care. Electronically signed by : Braldy Barkley MD 08/22/2022 11:08:24
[2022-08-21 07:09] LABS: Alanine Aminotransferase 48 U/L (12-78); Albumin Level 3.3 g/dl (3.5-5.0); Albumin/Globulin Ratio 1.2 (1.1-1.8); Alkaline Phosphatase 86 U/L (38-126); Anion Gap 8.5 mEq/L (5-15); Aspartate Amino Transferase 78 U/L (17-59); Blood Urea Nitrogen 33 mg/dl (9-20); Calcium 8.5 mg/dl (8.4-10.2); Carbon Dioxide 27 mmol/L (22.0-30.0); Chloride 105 mmol/L (98-107); Creatinine Clearance Estimated 42 mL/min (50-200); Estimated Glomerular Filt Rate 42 ml/min (>60); GFR (African American) 51 ML/MIN (>60); Globulin 2.8 g/dL (1.3-3.2); Glucose 112 mg/dl (74-100); Magnesium 1.9 mg/dl (1.6-2.3); Phosphorous 3.5 mg/dl (2.5-4.5); Potassium 3.5 mmoL/L (3.5-5.1); Sodium 137 mmol/L (136-145); Total Protein,Serum 6.1 g/dl (6.3-8.2)
--- NOTE | 2022-08-21 08:18 | EXP.CARD.PN ---
Subjective Subjective Date: 08/21/22 Time: 08:18 Principal diagnosis: SCD Interval history: 81-year-old white male in bed in no acute distress. Patient does not remember our discussion yesterday regarding ICD indication and implantation procedure. Multiple questions this morning answered patient again agrees to proceed. Patient's family member states he has had similar episodes of forgetfulness in the past from hospital but once home he begins to remember more. Exam Data for Last 24 hours Vital signs and Labs for Last 24 Hours: Temp Pulse Resp BP Pulse Ox FiO2 98.3 F 76 16 116/65 93 L 28 08/21/22 07:19 08/21/22 07:19 08/21/22 07:19 08/21/22 07:19 08/21/22 07:19 08/19/22 21:19 Laboratory Results - last 24 hr 08/19/22 16:54: POC Glucose 122 H 08/20/22 11:25: POC Glucose 73 08/20/22 12:14: Sodium 140, Potassium 3.4 L, Chloride 102, Carbon Dioxide 29, Anion Gap 12.4, BUN 38 H, Creatinine 1.90 H, Estimated Creat Clear 35, Estimated GFR 34 L, Est GFR ( Amer) 42 L, Glucose 131 H, Calcium 9.0 08/20/22 16:16: POC Glucose 136 H 08/20/22 21:11: POC Glucose 129 H 08/21/22 06:27: POC Glucose 115 H 08/21/22 06:28: WBC 7.8 D, RBC 3.23 L, Hgb 10.2 L, Hct 30.8 L, MCV 95.5 H, MCH 31.7 H, MCHC 33.2, RDW 14.3, Plt Count 204, MPV 8.2, Neut % (Auto) 76.3, Lymph % (Auto) 14.8, [place] % (Auto) 7.3, Eos % (Auto) 1.4, Baso % (Auto) 0.2, Neut # (Auto) 6.0, Lymph # (Auto) 1.2, [place] # (Auto) 0.6, Eos # (Auto) 0.1, Baso # (Auto) 0.0 08/21/22 06:28: Sodium 137, Potassium 3.5, Chloride 105, Carbon Dioxide 27, Anion Gap 8.5, BUN 33 H, Creatinine 1.60 H, Estimated Creat Clear 42, Estimated GFR 42 L, Est GFR ( Amer) 51 L D, Glucose 112 H, Calcium 8.5, Phosphorus 3.5, Magnesium 1.9, Total Bilirubin 1.0, AST 78 H D, ALT 48 D, Alkaline Phosphatase 86, Total Protein 6.1 L, Albumin 3.3 L, Globulin 2.8, Albumin/Globulin Ratio 1.2 I & O for Last 24 hours: Intake & Output 08/18/22 08/19/22 08/20/22 08/21/22 11:59 11:59 11:59 11:59 Intake Total 423 / 461 776 / 776 200 / 200 180 / 180 Output Total 2475 / 2825 1635 / 1635 1875 / 1875 0 / 0 Balance -2052 / -2364 -859 / -859 -1675 / -1675 180 / 180 Weight 184 lb 11.958 oz 178 lb 6 oz 170 lb 12.8 oz 174 lb 2 oz Microbiology Reports for the Last 24 Hours: Microbiology 08/18/22 02:00 Sputum - Endotracheal Tube Aspirate Gram Stain - Final 08/18/22 02:00 Sputum - Endotracheal Tube Aspirate Sputum Culture - Preliminary Gram Negative Rods Gram Negative Rods#2 Constitutional Constitutional: no acute distress *Routine Respiratory Exam Respiratory: Present crackles *Routine Cardiovascular Exam Cardiovascular: Present RRR *Routine Extremities Exam Extremities: Absent edema *Routine Neurological Exam Neurological: Present alert and oriented X3 Progress Note: A&P Assessment and plan (1) Sudden cardiac : Status: Acute (2) Cardiopulmonary arrest: Status: Acute (3) CAD (coronary artery disease): Status: Acute (4) Ischemic dilated cardiomyopathy: Status: Acute (5) Aspiration into airway: Status: Acute (6) Pulmonary edema: Status: Acute (7) Transaminitis: Status: Acute (8) Respiratory acidosis: Status: Acute (9) Metabolic acidosis: Status: Acute (10) Rib fracture: Status: Acute (11) Acute kidney injury: Status: Acute Assessment and Plan Assessment and Plan for All Diagnoses:: 1.? Sudden cardiac presenting as STEMI but with cardiac cath revealing no significant coronary artery disease.? Patent ROBBINS to LAD and patent SVG to PDA.? SVG to circumflex occluded.? Patient with remote history of [place] and prior known EF of 30%.? Echocardiogram this a.m. confirms ejection fraction is still in the 20-30% range.? Recommendation for AICD implantation prior to discharge.? Patient and family member both understand risk, benefits and procedure and patient agrees t
--- NOTE | 2022-08-21 09:37 | PC.NURSE ---
PT OFF FLOOR FOR PROCEDURE.
--- NOTE | 2022-08-21 10:59 | XR_ITS ---
FINAL REPORT CLINICAL HISTORY: Confirm pacemaker/AID placement COMPARISON: August 19, 2022 FINDINGS: The patient is rotated to the right. There is a new left subclavian pacemaker. Cardiomegaly is noted. There has been prior median sternotomy. There is persistent left basilar opacity. There is no pleural effusion. There is no pneumothorax. The bony thorax is intact. IMPRESSION: New left pacemaker without pneumothorax. Persistent left base opacity favoring atelectasis over pneumonia. Reviewed, Interpreted and Dictated by Tomer Cuellar III, MD Transcribed by Samy Covington Authenticated and [facility]
--- NOTE | 2022-08-21 11:21 | PC.NURSE ---
PT RETURNED FROM CATHLAB
--- NOTE | 2022-08-21 12:06 | PC.NURSE ---
1143- REPORT RECEIVED FROM COMPA MCKEON IN CATHLAB. VSS. PER EDVIN, PT SHOULD NOT READ PACED ON MONITOR-IF SO, CONTACT REP. NEW IV STARTED IN R FA. MAC SEDATION WAS RECEIVED. DRESSING TO L UPPER CHEST IS CDI.
--- NOTE | 2022-08-21 12:58 | PC.NURSE ---
1215- PT NOTED TO BE PACING ON TELEMETRY. WILY PULIDO NOTIFIED WHO ALSO REVIEWED TRACING. 1254- WILY PULIDO, AT BEDSIDE REPROGRAMMING AICD. PT TOLERATED WELL.
--- NOTE | 2022-08-21 13:23 | EXP.ACUTE.PN ---
Subjective *Date: 08/21/22 *Time: 17:56 Interval history: Patient taken for placement of AICD this morning. Tolerated procedure well. Denies any chest pain, nausea, vomiting, confusion. Concerned about returning back to normal level of function and quality of life he had before his cardiac arrest. at bedside uncomfortable taking him home today. Questions answered on rounds. Hemodynamically stable. Reviewed labs. Medical Exam Vital signs and Labs for Last 24 Hours: Vital Signs Temp Pulse Pulse Resp BP Pulse Ox 08/21/22 12:00 98.0 F 68 18 125/76 93 L 08/21/22 11:35 77 18 116/72 97 08/21/22 11:20 77 18 112/63 97 08/21/22 11:05 79 18 102/57 L 97 08/21/22 11:24 85 80 18 102/57 L 97 08/21/22 11:10 85 08/21/22 07:19 98.3 F 76 16 116/65 93 L 08/21/22 04:00 70 08/21/22 03:42 98.3 F 78 18 110/63 93 L 08/21/22 00:00 80 08/20/22 23:36 99.0 F 84 18 111/64 100 08/20/22 20:00 70 08/20/22 19:41 98.3 F 82 18 120/71 91 L 08/20/22 16:00 85 08/20/22 17:11 83 22 122/63 95 08/20/22 15:27 98.5 F 89 16 93/51 L 96 Intake and Output 08/20/22 08/21/22 08/21/22 23:59 07:59 15:59 Intake Total 120 / 180 0 / 0 Output Total 0 / 250 0 / 0 Balance 120 / -70 0 / 0 0 / 0 Intake: Intake, Oral Amount 120 / 180 0 / 0 Output: Output, Urine Amount 0 / 250 0 / 0 Other: Number of Unmeasured Voids 1 Weight 78.982 kg Patient Weight 08/21/22 23:59 Weight 78.982 kg Laboratory Results - last 24 hr 08/20/22 16:16: POC Glucose 136 H 08/20/22 21:11: POC Glucose 129 H 08/21/22 06:27: POC Glucose 115 H 08/21/22 06:28: WBC 7.8 D, RBC 3.23 L, Hgb 10.2 L, Hct 30.8 L, MCV 95.5 H, MCH 31.7 H, MCHC 33.2, RDW 14.3, Plt Count 204, MPV 8.2, Neut % (Auto) 76.3, Lymph % (Auto) 14.8, [place] % (Auto) 7.3, Eos % (Auto) 1.4, Baso % (Auto) 0.2, Neut # (Auto) 6.0, Lymph # (Auto) 1.2, [place] # (Auto) 0.6, Eos # (Auto) 0.1, Baso # (Auto) 0.0 08/21/22 06:28: Sodium 137, Potassium 3.5, Chloride 105, Carbon Dioxide 27, Anion Gap 8.5, BUN 33 H, Creatinine 1.60 H, Estimated Creat Clear 42, Estimated GFR 42 L, Est GFR ( Amer) 51 L D, Glucose 112 H, Calcium 8.5, Phosphorus 3.5, Magnesium 1.9, Total Bilirubin 1.0, AST 78 H D, ALT 48 D, Alkaline Phosphatase 86, Total Protein 6.1 L, Albumin 3.3 L, Globulin 2.8, Albumin/Globulin Ratio 1.2 I & O for Labs for Last 24 Hours: Intake & Output 08/18/22 08/19/22 08/20/22 08/21/22 23:59 23:59 23:59 23:59 Intake Total 966 / 983 433 / 433 180 / 180 0 / 0 Output Total 3810 / 3810 1925 / 1925 250 / 250 0 / 0 Balance -2844 / -2827 -1492 / -1492 -70 / -70 0 / 0 Weight 83.8 kg 80.91 kg 77.474 kg 78.982 kg Microbiology Reports for the Last 24 Hours: Microbiology 08/18/22 02:00 Sputum - Endotracheal Tube Aspirate Gram Stain - Final 08/18/22 02:00 Sputum - Endotracheal Tube Aspirate Sputum Culture - Preliminary Gram Negative Rods Gram Negative Rods#2 Constitutional: Present no acute distress Head: Present atraumatic and normocephalic ENT: Present normal exam Neck: Present normal inspection and full ROM Respiratory: Present CTA bilaterally; Absent accessory muscle use Cardiac: Present Reg Rate and Rhythm, Regular Rate and S1/S2 Comment:: Left upper chest with implanted device, incision clean dry and intact with dry bandage. GI: Present soft; Absent tenderness Rectal (male): Present deferred (male): Present deferred Extremities: Present normal inspection; Absent tenderness Skin: Present intact; Absent erythema Neuro: Present Cranial Nerve 2-12 Intact, Motor Function Intact, alert, awake, oriented x 3 and moves all extremities Assessment and Plan *Assessment and plan (1) Ischemic dilated cardiomyopathy: Status: Acute Category: Medical Code(s): I25.5 - Ischemic cardiomyopathy; I42.0 - Dilated cardiomyopathy (2
[2022-08-21 16:32] LABS: POC Glucose,Bedside 93 (70-110)
--- NOTE | 2022-08-21 16:46 | PC.NURSE ---
PT HAS RESTED WELL SINCE RETURNING FROM HIS PROCEDURE. DRESSING ON LEFT UPPER CHEST WITH SOME BLOODY DRAINAGE NOTED, REINFORCED. HAS REMAINED AT BEDSIDE. PT REMAINS NSR ON TELEMETRY. CALL LIGHT REMAINS WITHIN REACH.
[2022-08-21 21:24] LABS: POC Glucose,Bedside 129 (70-110)
[2022-08-22] VITALS: PULSE 80
[2022-08-22 04:00] VITALS: BP 141/70; PULSE 70; PULSE 78; RESP 16; TEMP 36.8; O2SAT 95; BMI 25.4
--- NOTE | 2022-08-22 05:36 | PC.NURSE ---
NO ACUTE CHANGES. PT HAS RESTED INTERMITTENTLY THIS SHIFT. IN GOOD SPIRITS. EAGER TO GO HOME. FAMILY AT BEDSIDE. VSS. DEFIB SIGHT IS C/D/I. DRESSING IN PLACE. STILL STATES THAT HIS RIBS AND STERNUM ARE SORE. NO OTHER C/O THIS SHIFT.
[2022-08-22 06:05] LABS: POC Glucose,Bedside 119 (70-110)
[2022-08-22 06:58] LABS: Basophils % 0.4 % (0.1-2.0); Eosinophils # 0.2 K/mm3 (0.0-0.4); Eosinophils % 2.5 % (0.1-12.0); Hematocrit 31.1 % (42.0-52.0); Lymphocytes # 1.1 K/mm3 (0.7-4.5); Lymphocytes % 18.7 % (10-50); Mean Corpuscular HGB Conc 32.2 g/dL (31.8-35.4); Mean Corpuscular Hemoglobin 30.3 pg (27.0-31.2); Mean Corpuscular Volume 93.9 fl (80-94); Mean Platelet Volume 8.4 fl (7.4-10.4); Monocytes # 0.6 K/mm3 (0.1-1.0); Monocytes % 10.4 % (1.7-9.3); Neutrophils # 4.2 K/mm3 (1.8-7.8); Platelet Count 203 K/mm3 (142-424); Red Blood Count 3.31 M/mm3 (4.60-6.20); Red Cell Distribution Width 14.3 % (11.5-17.5); White Blood Count 6.1 K/mm3 (4.8-10.8)
[2022-08-22 07:04] LABS: Alanine Aminotransferase 45 U/L (12-78); Albumin Level 3.2 g/dl (3.5-5.0); Albumin/Globulin Ratio 1.1 (1.1-1.8); Alkaline Phosphatase 110 U/L (38-126); Anion Gap 6.4 mEq/L (5-15); Aspartate Amino Transferase 75 U/L (17-59); Bilirubin,Total 0.8 mg/dl (0.2-1.3); Blood Urea Nitrogen 24 mg/dl (9-20); Calcium 8.3 mg/dl (8.4-10.2); Carbon Dioxide 26 mmol/L (22.0-30.0); Chloride 107 mmol/L (98-107); Creatinine Clearance Estimated 54 mL/min (50-200); Estimated Glomerular Filt Rate 53 ml/min (>60); GFR (African American) 64 ML/MIN (>60); Globulin 2.8 g/dL (1.3-3.2); Glucose 118 mg/dl (74-100); Phosphorous 3.8 mg/dl (2.5-4.5); Potassium 3.4 mmoL/L (3.5-5.1); Sodium 136 mmol/L (136-145)
--- NOTE | 2022-08-22 07:43 | EXP.CARD.PN ---
Subjective Subjective Date: 08/22/22 Time: 07:44 Principal diagnosis: SCD Interval history: 81-year-old white male in bed eating breakfast in no acute distress. When reviewing the patient's home medications he states he no longer takes spironolactone and reportedly has dizziness with lisinopril even though he has been taking it while here without complaints. He also reports he was taking 1-1/2 pills of metoprolol at home. Medication compliance seems to be a big issue with this patient. Review of telemetry shows no pacing overnight after programming change to AICD yesterday. Patient is ready to go home. Exam Data for Last 24 hours Vital signs and Labs for Last 24 Hours: Temp Pulse Resp BP Pulse Ox FiO2 98.2 F 78 16 141/70 H 95 28 08/22/22 04:00 08/22/22 04:00 08/22/22 04:00 08/22/22 04:00 08/22/22 04:00 08/19/22 21:19 Laboratory Results - last 24 hr 08/21/22 06:28: Sodium 137, Potassium 3.5, Chloride 105, Carbon Dioxide 27, Anion Gap 8.5, BUN 33 H, Creatinine 1.60 H, Estimated Creat Clear 42, Estimated GFR 42 L, Est GFR ( Amer) 51 L D, Glucose 112 H, Calcium 8.5, Phosphorus 3.5, Magnesium 1.9, Total Bilirubin 1.0, AST 78 H D, ALT 48 D, Alkaline Phosphatase 86, Total Protein 6.1 L, Albumin 3.3 L, Globulin 2.8, Albumin/Globulin Ratio 1.2 08/21/22 16:25: POC Glucose 93 08/21/22 21:00: POC Glucose 129 H 08/22/22 05:52: POC Glucose 119 H 08/22/22 05:54: WBC 6.1, RBC 3.31 L, Hgb 10.0 L, Hct 31.1 L, MCV 93.9, MCH 30.3, MCHC 32.2, RDW 14.3, Plt Count 203, MPV 8.4, Neut % (Auto) 68.0, Lymph % (Auto) 18.7, [place] % (Auto) 10.4 H, Eos % (Auto) 2.5, Baso % (Auto) 0.4, Neut # (Auto) 4.2, Lymph # (Auto) 1.1, [place] # (Auto) 0.6, Eos # (Auto) 0.2, Baso # (Auto) 0.0 08/22/22 05:54: Sodium 136, Potassium 3.4 L, Chloride 107, Carbon Dioxide 26, Anion Gap 6.4, BUN 24 H D, Creatinine 1.30 H, Estimated Creat Clear 54, Estimated GFR 53 L, Est GFR ( Amer) 64 D, Glucose 118 H, Calcium 8.3 L, Phosphorus 3.8, Total Bilirubin 0.8, AST 75 H, ALT 45, Alkaline Phosphatase 110, Total Protein 6.0 L, Albumin 3.2 L, Globulin 2.8, Albumin/Globulin Ratio 1.1 I & O for Last 24 hours: Intake & Output 08/19/22 08/20/22 08/21/22 08/22/22 11:59 11:59 11:59 11:59 Intake Total 776 / 776 200 / 200 180 / 180 290 / 290 Output Total 1635 / 1635 1875 / 1875 0 / 0 525 / 525 Balance -859 / -859 -1675 / -1675 180 / 180 -235 / -235 Weight 178 lb 6 oz 170 lb 12.8 oz 174 lb 2 oz 181 lb 7 oz Microbiology Reports for the Last 24 Hours: Microbiology 08/18/22 02:00 Sputum - Endotracheal Tube Aspirate Gram Stain - Final 08/18/22 02:00 Sputum - Endotracheal Tube Aspirate Sputum Culture - Preliminary Gram Negative Rods Gram Negative Rods#2 Constitutional Constitutional: no acute distress *Routine Respiratory Exam Respiratory: Present CTA bilaterally *Routine Cardiovascular Exam Cardiovascular: Present RRR Progress Note: A&P Assessment and plan (1) Ischemic dilated cardiomyopathy: Status: Acute (2) Cardiopulmonary arrest: Status: Acute (3) Acute kidney injury: Status: Acute (4) CAD (coronary artery disease): Status: Acute (5) Aspiration into airway: Status: Acute (6) Pulmonary edema: Status: Acute (7) Rib fracture: Status: Acute (8) Sudden cardiac : Status: Acute (9) Transaminitis: Status: Acute (10) Respiratory acidosis: Status: Acute (11) Metabolic acidosis: Status: Acute Assessment and Plan Assessment and Plan for All Diagnoses:: 1.? Sudden cardiac presenting as STEMI - cardiac cath revealing no significant coronary artery disease.? Patent ROBBINS to LAD and patent SVG to PDA.? SVG to circumflex occluded.? - Patient with remote history of [place] and prior known EF of 30%.? Echocardiogram this a.m. confirms ejection fraction is still in the 20-30% range.? - AICD implanted 08/21/2022 -Continue
[2022-08-22 08:00] VITALS: BP 135/68; PULSE 78; PULSE 80; RESP 20; TEMP 36.7; O2SAT 96
[2022-08-22 08:03] LABS: Chol/HDL Ratio 5.2 (1-3.5); Cholesterol 173 mg/dl (140-200); HDL Cholesterol 33 mg/dl (40-60); Triglycerides 135 mg/dl (30-150); VLDL Cholesterol 27 mg/dL (0-40)
--- NOTE | 2022-08-22 08:05 | EXP.DC.SUM ---
General Admission date:: 08/17/22 Discharge date: 08/22/22 HPI HPI HPI: Mr. Esposito is a transfer from [facility] due to acute onset of Cardiopulmonary Arrest that occurred while eating out today prior to his presentation to [facility]. Per Family at bedside the patient was out eating at a restaurant when he appeared to have a possible choking event and went down. He was unresponsive per family report and a bystander in the field performed CPR and 911 was called, there was also a supply requirements officer per family that assisted with CPR. He was intubated and defibrillated when EMS arrived. He was taken into the ER at [facility]. Records from the transferring facility were reviewed, while at the facility he was found in V-fibrillation and received epinephrine and Amiodarone and defibrillated with 200 Joules, he then went into [place] and received magnesium. He was found to have an elevated Troponin at 65.8 and EKG showed Atrial Fibrillation with a rate of 71 with significant elevation in the lateral leads. [facility]. At [facility] a STEMI alert was called, he underwent evaluation of coronary anatomy and no significant stenosis found. Due to a mixed Acidosis he received Sodium Bicarbonate in the manager labor relations. He arrived to the intensive care intubated, Sedations orders were given. The family were present at bedside on transfer, the plan of care overnight was discussed by the Unit Nurse. The family verbalized understanding and agreement with the plan of care. Hospital Course Hospital Course Hospital Course: 81-year-old male with reported history of ischemic cardiomyopathy, esophageal strictures, CAD s/p CABG and PCI, HTN presents with acute onset of cardiac arrest that occurred in the field.? Currently extubated receiving treatment for aspiration pneumonia.defibrillator placed today.? Problems addressed as follows: Needs defibrillator prior to discharge. Acute Onset of Cardiopulmonary arrest Dilated cardiomyopathy History of V. fib arrest -Cardiology consulted, appreciate their recommendations. Admitted for sudden cardiac arrest. Patient initially intubated in the field, rapid improvement with ability to extubate by second day of admission. On arrival he was taken to the Operations Administrator revealing no significant coronary artery disease. Patent ROBBINS to LAD and patent SVG to PDA. SVG to circumflex occluded. Remote history of [place] and prior known EF of 30%. Echo obtained during hospitalization confirming reduced ejection fraction of 20 to 30%. Given sudden cardiac arrest and reduced ejection fraction, AICD was implanted on 08/21/2022. Tolerated procedure well without any complications. Plan to continue amiodarone 400 mg twice daily for a week and then reduce to 400 mg daily at next office visit with cardiology as an outpatient. Plan to continue lisinopril 2.5 mg daily for dilated cardiomyopathy, recommend taking at night to prevent dizziness. Continue home metoprolol succinate 25 mg every morning. Patient is done very well during hospitalization. Stable for discharge home. Close follow-up with cardiology in a week. Counseled on medication changes and regimen prior to discharge. Additionally will treat with 80 g aspirin, omeprazole 20 mg daily. Discontinue spironolactone which she has not taken in some time. Cardiology to address statin therapy at outpatient follow-up. Respiratory Arrest/Aspiration Event s/p extubation -Initially started on Unasyn for aspiration. White cell count has normalized on labs. Transition to oral Augmentin to complete 7 days total of antibiotic therapy. Cultures growing gram-negative rods, low colony count from tracheal tube aspirate. Given clinical improvement on Unasyn, JONY: Developed after cardiac arrest, improved with normalization in creatinine to baseline. Transaminitis secondary to shock liver: Normalized on
[2022-08-22 08:14] LABS: Direct LDL Cholesterol 105.82 mg/dL (100-129)
--- NOTE | 2022-08-22 11:40 | P.CONPHA_ITS ---
Pharmacy Intervention Comments: Met with patient and at bedside to funeral prearrangement counselor on discharge medications. Discussed new and continued medications, including indications and possible adverse effects/mitigation strategies for each. Patient and verbalized understanding of the information provided and had no questions or concerns at th is time. -Aury Troncoso, PharmD Candidate 2022
--- NOTE | 2022-08-22 11:40 | HMH.PHAINT1 ---
Pharmacy Intervention Comments: Met with patient and at bedside to career technical counselor on discharge medications. Discussed new and continued medications, including indications and possible adverse effects/mitigation strategies for each. Patient and verbalized understanding of the information provided and had no questions or concerns at this time. -Aury Troncoso, PharmD Candidate 2022
[2022-08-22 12:00] VITALS: BP 122/67; PULSE 77; PULSE 80; RESP 18; TEMP 36.5; O2SAT 95
--- NOTE | 2022-08-23 15:21 | CARE MANAGER ---
Spoke with patient who states he is feeling well. He is taking medications, but there is confusion regarding Metoprolol. Patient's states that they brought him tartrate in thehospital yesterday from pharmacy and he needs succinate. However, pharmacy states it was succinate and that is the prescription that was sent. He also needs a different antibiotic based on culture and Dr. Sims is going to send [facility]. The [facility]ist at [facility] states he will speak to the and patient regarding the metoprolol when they sweet pickled fruit maker prescription for antibiotic. Denies any other questions or concerns and is aware of follow up appointments. MIKE Delvalle
== END 2022-08-22 13:17 | disposition home or self-care (01) | DRG 222 ==
LOC: 2ND 22:16
PROVIDERS: Nurse Practitioner Family; Physician Assistant; Student in an Organized Health Care Education/Training Program; Admitting Provider Internal Medicine Adolescent Medicine; Referring Provider Internal Medicine; Visit Provider Internal Medicine Adolescent Medicine
PROC: B2151ZZ Fluoroscopy of Left Heart using Low Osmolar Contrast (ICD-10-PCS; principal; 2022-08-17 21:25)
PROC: 0JH608Z Insertion of Defibrillator Generator into Chest Subcutaneous Tissue and Fascia, Open Approach (ICD-10-PCS; CPT 33249; principal; 2022-08-21 13:00)
DX: I21.09 ST elevation (STEMI) myocardial infarction involving other coronary artery of anterior wall (principal); I46.9 Cardiac arrest, cause unspecified; J69.0 Pneumonitis due to inhalation of food and vomit; E87.29 Other acidosis; I42.0 Dilated cardiomyopathy; I50.20 Unspecified systolic (congestive) heart failure; M96.A2 Fracture of one rib associated with chest compression and cardiopulmonary resuscitation; I11.0 Hypertensive heart disease with heart failure; E78.5 Hyperlipidemia, unspecified; Z95.1 Presence of aortocoronary bypass graft; Z95.5 Presence of coronary angioplasty implant and graft; I25.5 Ischemic cardiomyopathy; I25.10 Atherosclerotic heart disease of native coronary artery without angina pectoris
CPT/HCPCS: 31500; 94002; 33249; 36415; 70450; 71045; 71250; 74018; 80048; 80053; 80061; 81001; 82803; 82962; 83735; 83880; 84100; 85007; 85025; 85347; 87070; 87077; 87186; 87205; 92610; 93306; 93459; 94760; 97162; 99152; 99153; C1713; C1721; C1725; C1760; C1769; C1894; C1895; C9803; J0282; J1644; J2543; J2704; J7060; Q9967; U0003; U0005

== ENCOUNTER 2022-09-02 07:41 | Emergency (ER) | payer MEDICARE, SELFPAY ==
[2022-09-02 07:42] VITALS: BP 154/86; PULSE 66; RESP 16; TEMP 36.6; O2SAT 99; BMI 23.7
--- NOTE | 2022-09-02 07:46 | ECG_ITS ---
APPROVED REPORT Exam: Resting ECG HR:62 bpm ECG Measurements Heart Rate 62 AXES WA 266 P 91 QRSd 121 QRS -45 QT 441 T 110 QTc 446 Conclusion SINUS RHYTHM WITH FIRST DEGREE AV BLOCK LEFT ANTERIOR FASCICULAR BLOCK [QRS AXIS <= -45, QR IN I, RS IN II] POSSIBLE SEPTAL MYOCARDIAL INFARCTION , PROBABLY OLD [30 ms Q WAVE IN V1/V2] MODERATE T-WAVE ABNORMALITY, CONSIDER LATERAL ISCHEMIA [-0.1+ mV T-WAVE IN I/aVL/V5/V6] ABNORMAL ECG UNCONFIRMED REPORT Electronically signed by : Yadiel Porter MD 09/03/2022 20:17:00
[2022-09-02 08:15] VITALS: PULSE 59; RESP 14; O2SAT 99
--- NOTE | 2022-09-02 08:22 | PC.NURSE ---
pt given warm blanket
--- NOTE | 2022-09-02 08:24 | HMH.EDGENADL ---
Discharge Plan Disposition Patient Disposition: Home, Self-Care Condition: Good Chief Complaint: Shortness of Breath/Dyspnea Prescriptions Prescriptions: No Action metoprolol succinate 25 mg tablet extended release 24 hr 25 mg PO DAILY Qty: 90 3RF spironolactone [Aldactone] 25 mg tablet 12.5 mg PO DAILY omeprazole magnesium [Prilosec OTC] 20 mg Tablet,Delayed Release (Dr/Ec) 20 mg PO DAILY aspirin 81 mg Tablet 81 mg PO DAILY amiodarone 200 mg tablet 400 mg PO DAILY lisinopril 2.5 mg tablet 2.5 mg PO HS Livalo 1 mg tablet 1 mg PO DAILY Referrals Follow up/Referrals: Provider,Referral, MD [Primary Care Provider] - See instructions Activity Restrictions/Add. Instructions Additional Instructions/Restrictions: Wear nasal cannula oxygen at night, 2L/min. Follow up with your PCP on Saturday. Clinical Impressions Clinical Impression: Nocturnal hypoxia Discharge ED Provider: Eliud Padilla General Adult HPI General Chief complaint: Shortness of Breath/Dyspnea Stated complaint: Low oxygen Time Seen by Provider: 09/02/22 08:10 Mode of Arrival: Wheelchair Limitations: No Limitations Description of Symptoms (Recalled from ER Triage Doc. by RN): Pt reports wakes up frequently at night gasping for air. Pt reports SOA only while sleeping. Pt reports was in the hospital r/t OR that occurred on 08/17/22, pt reports has to wear oxygen at night when sleeping when at the hospital. History of Present Illness HPI narrative: Patient complains of his oxygen dropping at night while he is sleeping. He states that he recently had a heart attack, cardiac arrest, AICD placed 08/17/2022. Since being discharged she says that he has been getting short of breath at night. Initially he could take a couple of deep breaths and it would resolve. However last night, he woke up gasping for breath and his oxygen saturation was in the 60s. He says that the same thing happened to him after he had bypass surgery years ago. He says that his oxygen will drop at night while sleeping and he had to wear oxygen at night for 3 weeks after his surgery. He does not have any known diagnosis of sleep apnea. He is not sure whether he has had an apnea study, he says he has had a test to see if his oxygen dropped at night after his bypass surgery. He is wanting the same now. He says he has an appointment with his primary care provider in [place] this coming Saturday to get tested to see if his oxygen drops when he is sleeping, but does not feel that he can wait because of the event last night. Clinical sales and marketing administrator present in the ED says that during patient's hospital stay, after extubation he required 2L [place] oxygen at night for desaturation. He states he feels fine during the day. No shortness of breath. He has not been having any chest pain. He did notice yesterday when going up the stairs at a basketball game that he felt very weak, but says he was not short of breath and did not have chest pain. Dr. Padilla spoke with patient/ last night as physician on-call. [facility] equipment would not accept patient's own O2 saturation reading or an EMS reading as criteria for home O2, needs to have it documented by a medical professional. Therefore, patient came to the ED to see if it could be documented. Related Data Home Medications Medication Instructions Recorded Confirmed aspirin 81 mg tablet 81 mg PO DAILY Blood thinner 08/18/22 09/02/22 omeprazole magnesium 20 mg 20 mg PO DAILY GERD 08/18/22 09/02/22 tablet,delayed release (Prilosec OTC) spironolactone 25 mg tablet 12.5 mg PO DAILY heart 08/29/22 09/02/22 (Aldactone) amiodarone 200 mg tablet 400 mg PO DAILY heart 09/02/22 09/02/22 lisinopril 2.5 mg tablet 2.5 mg PO HS blood pressure 09/02/22 09/02/22 pitavastatin calcium 1 mg tablet 1 mg PO DAILY . 09/02/22 09/02/22 (Livalo) Previous Rx's Medication Instructions Recorde
--- NOTE | 2022-09-02 08:29 | PC.NURSE ---
spoke with pt and about cardiac work up. pt declined at this time and states he only wants sp02 monitoring.
[2022-09-02 08:30] VITALS: BP 132/76; PULSE 59; RESP 14; O2SAT 98
--- NOTE | 2022-09-02 09:04 | PC.NURSE ---
pt sleeping, noted on monitor SaO2 83% on RA while sleeping, sat improved on own, no intervention needed. Notified ER MD
--- NOTE | 2022-09-02 09:12 | PC.NURSE ---
message left on [facility] home medical emergency line for home oxygen needs. waiting measurement and verification engineer back
--- NOTE | 2022-09-02 09:21 | PC.NURSE ---
spoke with [facility] [employer] staff, stated to have me fax over pts documentation and they will deliver oxygen to pts home today. States to have pt call the store and leave a message when he gets home.
--- NOTE | 2022-09-02 09:32 | PC.NURSE ---
pt reporting shortness of breath when sleeping
[2022-09-02 09:45] VITALS: BP 132/77; PULSE 57; RESP 16; TEMP 36.6; O2SAT 97
== END 2022-09-02 09:45 | disposition home or self-care (01) ==
PROVIDERS: Emergency Provider Emergency Medicine
DX: G47.36 Sleep related hypoventilation in conditions classified elsewhere (principal); I25.2 Old myocardial infarction; Z95.810 Presence of automatic (implantable) cardiac defibrillator; Z98.84 Bariatric surgery status; I50.9 Heart failure, unspecified; I25.10 Atherosclerotic heart disease of native coronary artery without angina pectoris; R29.6 Repeated falls; K21.9 Gastro-esophageal reflux disease without esophagitis; E78.5 Hyperlipidemia, unspecified; I11.0 Hypertensive heart disease with heart failure; R06.02 Shortness of breath
CPT/HCPCS: 93005; 99283

== ENCOUNTER 2022-10-16 13:34 | Outpatient (CLI) | payer MEDICARE, SELFPAY ==
[2022-10-16 13:58] VITALS: BP 125/77; PULSE 58; RESP 20; TEMP 36.4; O2SAT 98
== END 2022-10-16 14:15 | disposition home or self-care (01) ==
LOC: INF 13:35
PROVIDERS: PCP Internal Medicine; Visit Provider Nurse Practitioner
DX: E78.5 Hyperlipidemia, unspecified (principal)
CPT/HCPCS: 96372; J1306

== ENCOUNTER → 2022-10-31 14:15 | Outpatient (CLI) | payer MEDICARE, SELFPAY ==
[2022-10-31 15:22] LABS: Basophils # 0.1 K/mm3 (0-0.2); Basophils % 0.7 % (0.1-2.0); Eosinophils # 0.3 K/mm3 (0.0-0.4); Eosinophils % 3.6 % (0.1-12.0); Hematocrit 45.5 % (42.0-52.0); Hemoglobin 14.8 g/dL (14.1-18.0); Lymphocytes # 1.8 K/mm3 (0.7-4.5); Lymphocytes % 25.7 % (10-50); Mean Corpuscular HGB Conc 32.5 g/dL (31.8-35.4); Mean Corpuscular Hemoglobin 30.8 pg (27.0-31.2); Mean Corpuscular Volume 94.8 fl (80-94); Mean Platelet Volume 7.9 fl (7.4-10.4); Monocytes # 0.7 K/mm3 (0.1-1.0); Monocytes % 10.6 % (1.7-9.3); Neutrophils # 4.2 K/mm3 (1.8-7.8); Neutrophils % 59.4 % (37.0-80.0); Platelet Count 339 K/mm3 (142-424); Red Cell Distribution Width 14.4 % (11.5-17.5)
[2022-10-31 16:26] LABS: Anion Gap 12.6 mEq/L (5-15); Blood Urea Nitrogen 21 mg/dl (9-20); Calcium 9.2 mg/dl (8.4-10.2); Carbon Dioxide 26 mmol/L (22.0-30.0); Chloride 103 mmol/L (98-107); Estimated Glomerular Filt Rate 42 ml/min (>60); GFR (African American) 51 ML/MIN (>60); Glucose 110 mg/dl (74-100); Magnesium 2.3 mg/dl (1.6-2.3); Potassium 5.6 mmoL/L (3.5-5.1); Sodium 136 mmol/L (136-145)
== END ==
PROVIDERS: PCP Nurse Practitioner Family; Visit Provider Nurse Practitioner
DX: I25.10 Atherosclerotic heart disease of native coronary artery without angina pectoris (principal); I50.9 Heart failure, unspecified
CPT/HCPCS: 36415; 80048; 83735; 85025

== ENCOUNTER → 2022-11-15 16:26 | Outpatient (CLI) | payer MEDICARE, SELFPAY ==
[2022-11-15 17:05] LABS: Basophils % 0.7 % (0.1-2.0); Eosinophils # 0.3 K/mm3 (0.0-0.4); Eosinophils % 4.4 % (0.1-12.0); Hematocrit 41.9 % (42.0-52.0); Hemoglobin 13.5 g/dL (14.1-18.0); Lymphocytes # 1.6 K/mm3 (0.7-4.5); Lymphocytes % 25.4 % (10-50); Mean Corpuscular HGB Conc 32.3 g/dL (31.8-35.4); Mean Corpuscular Hemoglobin 31.5 pg (27.0-31.2); Mean Corpuscular Volume 97.5 fl (80-94); Mean Platelet Volume 7.5 fl (7.4-10.4); Monocytes # 0.7 K/mm3 (0.1-1.0); Monocytes % 10.5 % (1.7-9.3); Neutrophils # 3.6 K/mm3 (1.8-7.8); Platelet Count 305 K/mm3 (142-424); White Blood Count 6.2 K/mm3 (4.8-10.8)
[2022-11-15 17:31] LABS: Chloride 104 mmol/L (98-107); Potassium 5.8 mmoL/L (3.5-5.1); Sodium 139 mmol/L (136-145)
[2022-11-15 17:33] LABS: Bilirubin,Unconjugated 0.3 mg/dL (0.0-1.1); Blood Urea Nitrogen 23 mg/dl (9-20); Estimated Glomerular Filt Rate 42 ml/min (>60); GFR (African American) 51 ML/MIN (>60)
[2022-11-15 17:34] LABS: Alanine Aminotransferase 25 U/L (12-78); Albumin Level 4.2 g/dl (3.5-5.0); Alkaline Phosphatase 120 U/L (38-126); Anion Gap 14.8 mEq/L (5-15); Aspartate Amino Transferase 39 U/L (17-59); Bilirubin,Direct 0.1 mg/dl (0.0-0.4); Bilirubin,Indirect 0.3 mg/dL (0.0-0.9); Bilirubin,Total 0.4 mg/dl (0.2-1.3); Calcium 8.7 mg/dl (8.4-10.2); Carbon Dioxide 26 mmol/L (22.0-30.0); Chol/HDL Ratio 3.4 (1-3.5); Cholesterol 127 mg/dl (140-200); Glucose 107 mg/dl (74-100); HDL Cholesterol 37 mg/dl (40-60); Total Protein,Serum 6.9 g/dl (6.3-8.2); Triglycerides 390 mg/dl (30-150); VLDL Cholesterol 78 mg/dL (0-40)
[2022-11-15 17:45] LABS: Direct LDL Cholesterol 55.91 mg/dL (100-129)
[2022-11-15 18:05] LABS: Thyroid Stimulating Hormone 0.67 uIU/mL (0.465-4.68)
== END ==
PROVIDERS: PCP Nurse Practitioner Family; Visit Provider Nurse Practitioner
DX: R06.00 Dyspnea, unspecified (principal); I11.0 Hypertensive heart disease with heart failure; E87.5 Hyperkalemia; I63.9 Cerebral infarction, unspecified; E78.5 Hyperlipidemia, unspecified; I25.10 Atherosclerotic heart disease of native coronary artery without angina pectoris; I25.5 Ischemic cardiomyopathy; I42.0 Dilated cardiomyopathy; I50.9 Heart failure, unspecified; Z95.1 Presence of aortocoronary bypass graft
CPT/HCPCS: 36415; 80048; 80061; 80076; 84439; 84443; 85025

== ENCOUNTER → 2022-11-19 16:33 | Outpatient (CLI) | payer MEDICARE, SELFPAY ==
[2022-11-19 17:18] LABS: Chloride 103 mmol/L (98-107)
[2022-11-19 17:19] LABS: Potassium 5.3 mmoL/L (3.5-5.1); Sodium 136 mmol/L (136-145)
[2022-11-19 17:22] LABS: Anion Gap 8.3 mEq/L (5-15); Blood Urea Nitrogen 17 mg/dl (9-20); Calcium 8.7 mg/dl (8.4-10.2); Carbon Dioxide 30 mmol/L (22.0-30.0); Estimated Glomerular Filt Rate 49 ml/min (>60); GFR (African American) 59 ML/MIN (>60); Glucose 104 mg/dl (74-100)
== END ==
PROVIDERS: PCP Nurse Practitioner Family; Visit Provider Physician Assistant
DX: E87.5 Hyperkalemia (principal)
CPT/HCPCS: 36415; 80048

== ENCOUNTER → 2023-01-08 18:53 | Outpatient (CLI) | payer MEDICARE, SELFPAY ==
[2023-01-08 19:37] LABS: Chloride 101 mmol/L (98-107); Sodium 139 mmol/L (136-145)
[2023-01-08 19:40] LABS: Blood Urea Nitrogen 26 mg/dl (9-20); Calcium 8.8 mg/dl (8.4-10.2); Carbon Dioxide 28 mmol/L (22.0-30.0); Estimated Glomerular Filt Rate 34 ml/min (>60); GFR (African American) 41 ML/MIN (>60); Glucose 101 mg/dl (74-100)
[2023-01-08 19:41] LABS: Magnesium 2.1 mg/dl (1.6-2.3)
== END ==
PROVIDERS: Physician Assistant; PCP Nurse Practitioner Family; Visit Provider Internal Medicine Cardiovascular Disease
DX: E87.5 Hyperkalemia (principal); I10 Essential (primary) hypertension; I25.10 Atherosclerotic heart disease of native coronary artery without angina pectoris; I25.5 Ischemic cardiomyopathy; I42.0 Dilated cardiomyopathy; I50.9 Heart failure, unspecified; Z95.1 Presence of aortocoronary bypass graft; Z95.810 Presence of automatic (implantable) cardiac defibrillator
CPT/HCPCS: 80048; 83735

== ENCOUNTER 2023-02-15 12:53 | Outpatient (CLI) | payer MEDICARE, SELFPAY ==
[2023-02-15 13:04] VITALS: BP 128/71; PULSE 56; RESP 16; TEMP 36.7; O2SAT 98
== END 2023-02-15 13:10 | disposition home or self-care (01) ==
PROVIDERS: PCP Nurse Practitioner Family; Visit Provider Nurse Practitioner
DX: E78.5 Hyperlipidemia, unspecified (principal)
CPT/HCPCS: 96372; J1306

== ENCOUNTER 2023-08-23 08:14 | Outpatient (CLI) | payer MEDICARE, SELFPAY ==
[2023-08-23] MEDS: INCLISIRAN SODIUM 284 MG/1.5 ML SYRINGE SQ (08:22)
[2023-08-23 08:25] VITALS: BP 102/58; PULSE 74; RESP 18; TEMP 36.4; O2SAT 97
== END 2023-08-23 08:30 | disposition home or self-care (01) ==
PROVIDERS: Visit Provider Nurse Practitioner
DX: E78.5 Hyperlipidemia, unspecified (principal)
CPT/HCPCS: 96372; J1306

== ENCOUNTER 2024-02-21 09:06 | Outpatient (CLI) | payer MEDICARE, SELFPAY ==
[2024-02-21 10:47] LABS: Alanine Aminotransferase 23 U/L (12-78); Albumin Level 3.8 g/dl (3.5-5.0); Alkaline Phosphatase 109 U/L (38-126); Aspartate Amino Transferase 33 U/L (17-59); Bilirubin,Indirect 0.5 mg/dL (0.0-0.9); Bilirubin,Total 0.5 mg/dl (0.2-1.3); Bilirubin,Unconjugated 0.6 mg/dL (0.0-1.1); Chol/HDL Ratio 3.5 (1-3.5); Cholesterol 140 mg/dl (140-200); HDL Cholesterol 40 mg/dl (40-60); Total Protein,Serum 6.5 g/dl (6.3-8.2); Triglycerides 121 mg/dl (30-150); VLDL Cholesterol 24 mg/dL (0-40)
[2024-02-21 10:59] LABS: Direct LDL Cholesterol 69.09 mg/dL (100-129)
== END 2024-02-21 23:59 | disposition home or self-care (01) ==
PROVIDERS: PCP Internal Medicine; Visit Provider Physician Assistant
DX: I10 Essential (primary) hypertension (principal); E78.5 Hyperlipidemia, unspecified
CPT/HCPCS: 36415; 80061; 80076

== ENCOUNTER 2024-03-05 13:07 | Outpatient (CLI) | payer MEDICARE, SELFPAY ==
[2024-03-05 13:20] VITALS: BP 120/70; PULSE 74; RESP 18; TEMP 36.9; O2SAT 96
[2024-03-05] MEDS: INCLISIRAN SODIUM 284 MG/1.5 ML SYRINGE SQ (13:20)
== END 2024-03-05 13:30 | disposition home or self-care (01) ==
LOC: INF 13:10
PROVIDERS: Visit Provider Internal Medicine Cardiovascular Disease
DX: E78.5 Hyperlipidemia, unspecified (principal)
CPT/HCPCS: 96372; J1306

== ENCOUNTER 2025-01-14 13:02 | Outpatient (CLI) | payer MEDICARE, SELFPAY ==
[2025-01-14 13:56] LABS: Alanine Aminotransferase 16 U/L (12-78); Albumin Level 4.2 g/dl (3.5-5.0); Alkaline Phosphatase 112 U/L (38-126); Aspartate Amino Transferase 26 U/L (17-59); Bilirubin,Direct 0.4 mg/dl (0.0-0.4); Bilirubin,Indirect 0.5 mg/dL (0.0-0.9); Bilirubin,Total 0.9 mg/dl (0.2-1.3); Bilirubin,Unconjugated 0.6 mg/dL (0.0-1.1); Chol/HDL Ratio 3.4 (1-3.5); Cholesterol 155 mg/dl (140-200); HDL Cholesterol 46 mg/dl (40-60); Total Protein,Serum 7.1 g/dl (6.3-8.2); Triglycerides 173 mg/dl (30-150); VLDL Cholesterol 35 mg/dL (0-40)
[2025-01-14 14:07] LABS: Direct LDL Cholesterol 71.66 mg/dL (100-129)
== END 2025-01-14 23:59 | disposition home or self-care (01) ==
PROVIDERS: PCP Internal Medicine; Visit Provider Nurse Practitioner
DX: I25.10 Atherosclerotic heart disease of native coronary artery without angina pectoris (principal); Z95.810 Presence of automatic (implantable) cardiac defibrillator; Z95.1 Presence of aortocoronary bypass graft; E78.5 Hyperlipidemia, unspecified; I10 Essential (primary) hypertension
CPT/HCPCS: 36415; 80061; 80076